=== PATIENT | female | born 1950 | race Caucasian/White ===

== ENCOUNTER 2017-06-14 10:25 | Inpatient (IN) | payer MEDICARE, BC ==
[2017-06-14 11:24] LABS: ABS Basophils 0 10^3/ul (0-0.2); ABS Eosinophils 0 10^3/ul (0-0.6); ABS Monocytes 0.4 10^3/ul (0-0.8); ABS Neutrophils 5.1 10^3/ul (1.5-7.7); ABS Nucleated RBC 0 10^3/ul; Eosinophil % 0.3 % (0-6); Hematocrit 42 % (35-47); Hemoglobin 14.2 g/dl (12.0-16.0); Lymphocyte % 15.5 % (25-47); Mean Corpuscular HGB Conc 34 g/dl (31-36); Mean Corpuscular Hemoglobin 31 pg (27-31); Mean Corpuscular Volume 92 fL (80-97); Mean Platelet Volume 9 um3 (7.4-10.4); Nucleated Red Blood Cells % 0.1; Platelet Count 195 10^3/ul (150-450); Red Blood Count 4.54 10^6/ul (4.0-5.4); Red Cell Distribution Width 14 % (10.5-15); White Blood Count 6.6 10^3/ul (3.5-10.8)
[2017-06-14 11:31] LABS: INR 0.89 (0.77-1.02)
[2017-06-14 11:43] LABS: EGFR Non-African American 72.6 (>60)
[2017-06-14] MEDS ORDERED: Iohexol 350* (CONTRAST) 500 ML MDV IV ONE (12:18)
[2017-06-14 12:35] LABS: Urine Appearance Clear; Urine Blood Negative (Negative); Urine Color Yellow; Urine Ketones Trace (Negative); Urine Protein 1+(30 mg/dL) (Negative); Urine Specific Gravity 1.013 (1.010-1.030); Urine Urobilinogen Negative (Negative)
--- NOTE | 2017-06-14 13:23 | RAD ---
HISTORY: Dysarthria COMPARISONS: None TECHNIQUE: Multiple contiguous axial CT scans were obtained of the head, before and after, and of the neck after the administration of nonionic intravenous contrast timed to the systemic arterial phase of contrast enhancement. Coronal and sagittal multiplanar reformations are submitted for review. Multiple 3-D maximum intensity projection reconstructions are also submitted for review. FINDINGS: CTA NECK: AORTIC ARCH: There is calcific atherosclerotic disease of the aortic arch, without ostial or proximal stenosis of the cephalic great vessels. There is a normal three-vessel branching pattern. RIGHT VERTEBRAL ARTERY: The right vertebral artery is patent along its course, without stenosis. LEFT VERTEBRAL ARTERY: The left vertebral artery is patent along its course, without stenosis. DOMINANCE: The left vertebral artery is dominant. RIGHT COMMON CAROTID ARTERY: The right common carotid artery is patent. The right carotid bifurcation occurs at C4-C5 RIGHT INTERNAL CAROTID ARTERY: There is atheromatous disease of the right carotid bifurcation, without right internal carotid artery stenosis by NASCET criteria. RIGHT EXTERNAL CAROTID ARTERY: The right external carotid artery is unremarkable. LEFT COMMON CAROTID ARTERY: The left common carotid artery is patent. The left carotid bifurcation occurs at C3-C4 LEFT INTERNAL CAROTID ARTERY: There is atheromatous disease of the left carotid bifurcation, without left internal carotid artery stenosis by NASCET criteria. LEFT EXTERNAL CAROTID ARTERY: The left external carotid artery is unremarkable. VENOUS CIRCULATION: The venous system is unremarkable. SALIVARY GLANDS: The parotid glands, submandibular glands, sublingual glands are normal. NASAL CAVITY/NASOPHARYNX: The nasal cavity and nasopharynx are normal. ORAL CAVITY/OROPHARYNX: The oral cavity is obscured by streak artifact from dental amalgam. The visualized oral cavity and oropharynx are unremarkable. LARYNGEAL APPARATUS/HYPOPHARYNX: The laryngeal apparatus and hypopharynx are normal. UPPER AIRWAY/UPPER ESOPHAGUS: The visualized upper airway and esophagus are normal. LUNG APICES: The lung apices are clear. THYROID GLAND: The thyroid gland is normal. LYMPH NODES: There is no lymphadenopathy by size criteria. BONES AND SOFT TISSUES: Degenerative changes are noted along the spine. CTA HEAD: INTRACRANIAL CIRCULATION: There is no aneurysm, vascular malformation, occlusion, or stenosis of the visualized intracranial circulation. The anterior communicating artery complex is clear. Bilateral posterior communicating arteries are identified. VENOUS CIRCULATION: The venous system is unremarkable. PERFUSION: There is no obvious parenchymal perfusion deficit. HEMORRHAGE/INFARCT: There is no hemorrhage or acute infarct. MASSES/SHIFT: There is no mass or shift. EXTRA-AXIAL SPACES: There are no extra-axial fluid collections. SULCI AND VENTRICLES: The sulci and ventricles are normal in size and position for the patient's stated age. CEREBRUM: There are no focal parenchymal abnormalities. BRAINSTEM: There are no focal parenchymal abnormalities. CEREBELLUM: There are no focal parenchymal abnormalities. PARANASAL SINUSES: The paranasal sinuses are clear. ORBITS: The orbits are unremarkable. BONES AND SOFT TISSUE: No bone or soft tissue abnormalities are noted. OTHER: There is no abnormal enhancement. IMPRESSION: 1. ATHEROSCLEROSIS. 2. NO INTERNAL CAROTID ARTERY STENOSIS BY NASCET CRITERIA. 3. NO ANEURYSM, VASCULAR MALFORMATION, OCCLUSION, OR STENOSIS OF THE VISUALIZED INTRACRANIAL CIRCULATION. CPT II Codes: 3100F
[2017-06-14] MEDS ORDERED: Aspirin Low Dose CHEW TAB* 81 MG PO ONE (14:44)
[2017-06-14] MEDS ORDERED: Aspirin Low Dose CHEW TAB* 81 MG ONE (14:48)
[2017-06-14] MEDS ORDERED: Labetalol IV* 5 MG/ML 20 ML VIAL IV PUSH ONE (14:49)
[2017-06-14] MEDS ORDERED: hydrALAZINE IV* 20 MG/ML VIAL IV SLOW PU PRN ×2 (14:49→23:04)
[2017-06-14] MEDS ORDERED: Acetaminophen TAB* 325 MG PO PRN (14:49)
[2017-06-14] MEDS ORDERED: Ondansetron INJ* 2 MG/ML VIAL IV PRN (14:49)
--- NOTE | 2017-06-14 16:29 | RAD ---
Indication: LEFT side weakness since waking this morning. Weak LEFT great strength and slurred speech. Comparison: CT angiogram head and neck of the same date. Technique: [employer] [place] 1.5 Zita GR606B with GEM suite. MRI brain without contrast. Report: Small focus of restricted diffusion at the posterior limb of the RIGHT internal capsule with corresponding decreased signal on ADC map consistent with acute or subacute ischemia. Susceptibility series is negative for stigmata of hemosiderin deposition to indicate previous hemorrhage. Unremarkable cerebral sulci, ventricles, and basal cisterns. Mild increased T2 signal in the periventricular white matter most suggestive of chronic small vessel ischemic disease. No intra or extra-axial fluid collection evident. Negative for mass effect. Unremarkable orbital contents. Preserved major intracranial flow-voids. No suspicious finding of the calvarium or skull base. Clear paranasal sinuses. Mild LEFT mastoid effusions. IMPRESSION: Small focus of restricted diffusion at the posterior limb of the RIGHT internal capsule with corresponding decreased signal on ADC map consistent with acute or subacute ischemia. Negative for associated mass effect.
[2017-06-14] MEDS ORDERED: Atorvastatin* 80 MG TAB PO SCH (17:00)
[2017-06-14] MEDS: Atorvastatin* 80 MG TAB PO SCH (20:19)
--- NOTE | 2017-06-14 20:24 | CONS ---
NEUROLOGY CONSULTATION: DATE OF CONSULT: 06/14/17 LOCATION: The patient is in the emergency department. REQUESTING PHYSICIAN: Alex Sousa MD REASON FOR CONSULT: Probable stroke. HISTORY OF PRESENT ILLNESS: Prema Alcantar is a 67-year-old woman with a history of discoid lupus that was previously treated with hydroxychloroquine, but she stopped it in mid April and presents this morning with complaints of listing to the left and some left-sided weakness. The patient reports that she was in her usual state of health when she went to bed last night around 10 p.m. She woke up sometime in the middle of the night, she estimates around 1:30 a.m. to urinate and noticed that she was stumbling to the left. She went back to bed and woke up several more times to urinate and had similar difficulty walking. When she woke up this morning, she was having some dysarthria and did not notice any problems with word finding or with understanding the speech of others. She had to go down the stairs seated to get out of her house because of her significant balance difficulties and her son brought her to the emergency department. She has not noticed any sensory changes on the left side. She denies any vision changes, swallowing difficulties, vertigo. She has never had symptoms like this before. She denies any known history of hypertension, though was very hypertensive and has remained so since she has been here in the emergency department. However, she does not check her blood pressure regularly and the last time she was at her primary care physician was about a year ago. Neurology consultation was requested due to possibility of stroke. PAST MEDICAL HISTORY: Discoid lupus. PAST SURGICAL HISTORY: Tubal ligation. HOME MEDICATIONS: 1. Clobetasol cream and ointment for her lupus. 2. Mometasone cream. ALLERGIES: No known drug allergies. FAMILY HISTORY: Parents reportedly both had esophageal cancer as did a sibling. Her brother had a stroke last year and she states he has a history of hypertension. SOCIAL HISTORY: She smokes approximately 4 to 5 cigarettes daily, but has smoked for the past 35 to 40 years and at the most smoked a pack a day. She does not drink alcohol. She denies any drug use. 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 She lives with her son. REVIEW OF SYSTEMS: She denies any recent unintentional weight loss, fever, chills, appetite changes. She denies chest pain, palpitations, fluttering in her chest. She denies shortness of breath or cough. She denies any new joint pain or swelling. Otherwise, as per the HPI. PHYSICAL EXAM: Vital Signs: Blood pressure on her initial arrival in the emergency department was 240/116 and on recheck it was 220/99. Her blood pressure when I was evaluating her in the room was in the 170s/90s and then later 201/90s. Her heart rate is 87, oxygen saturation 96% on room air, and her temperature is 98.4. On general examination, she is in no acute distress. She was initially sitting up in her hospital bed with her daughter and a close family friend present. She indicated that her left arm had become much weaker since her arrival in the emergency department, but she had not alerted anyone. At that point, I asked her to lie back on the stretcher and put her head at 30 degrees or less. Her heart is in a regular rate and rhythm with no obvious murmurs, rubs, or gallops. Her lungs are clear to auscultation bilaterally. There are no carotid bruits. Her skin exam is notable for multiple erythematous discoid lesions secondary to her history of discoid lupus as well as some alopecia and thinning hair presumably related to the same. On neurologic exam, she is fully awake, alert, and oriented. She has mild dysarthria. There is no aphasia. Pupils are equal, round, and reactive from 4 to 2 mm bilaterally. Versions are full without nystagmus. Gomez are full to confrontation with no extinction to double simultaneous stimulation. Facial sensation is mildly diminished to light touch in the left V1 through V3 distributions. She has flattened left nasolabial fold and delayed activation with smile. Hearing is intact to voice. The palate elevates symmetrically. The tongue deviates to the left slightly. Shoulder shrug is delayed on the left. On motor examination, she has decreased tone in the left upper extremity. Strength is full in the right upper and lower extremities. She is unable to abduct the shoulder antigravity. The biceps is a grade 2 while the left triceps is grade 3 to 4. She is able to form a fist, but very weakly. Her left lower extremity is antigravity, but with great effort and she cannot sustain it off the bed for 5 seconds. The left knee flexor is a grade 3, knee extensor grade 4 and ankle dorsiflexor grade 3. Sensation is intact to light touch and pinprick in the upper extremities, but slightly decreased to pinprick in the left lower extremity. There is no obvious ataxia out of proportion to weakness in the upper and lower extremities. Reflexes are 2+ throughout with an upgoing toe on the left. I did not ambulate her. LABORATORY DATA/DIAGNOSTIC STUDIES: CBC is unremarkable. Her CMP is notable only for a glucose of 115. Otherwise, her renal function and liver functions are normal. TSH is 3.35. Urinalysis showed 1+ protein, trace ketones, trace leukocyte esterase, hyaline casts and epithelial cells present. Her coagulation studies were normal. Noncontrasted head CT did not show any evidence of acute infarction or hemorrhage. CT angiogram of the head and neck was obtained and personally reviewed and shows some atherosclerotic disease of the aortic arch, but no significant stenosis in the anterior or posterior circulation and no evidence for dissection. Intracranially, there is no evidence for a large vessel occlusion. IMPRESSION: Prema Alcantar is a 67-year-old woman with a history of discoid lupus who is presenting subacutely with left hemiparesis, concerning for subcortical right hemispheric stroke. She apparently has worsened since she has been here in the emergency department but unfortunately because of the time of presentation, there was nothing acute that could be done for her such as TPA. Her CT angiogram shows no target for endovascular intervention. She will be admitted to our hospital for stroke workup. I will have her get an aspirin here in the emergency department and she will need a bedside swallow evaluation as well. We should allow permissive hypertension, but should treat her blood pressure carefully at this point since the systolic is greater than 180. Blood pressure goals would be to treat systolics greater than 180 and diastolic greater than 110 with goal MAPs to maintain between 80 and 120. Tomorrow, she should be continued on aspirin 81 mg daily and we should get fasting lipid profile as well as hemoglobin A1c. She will have transthoracic echocardiogram with bubble study and therapy evaluations. I will follow along during her hospitalization. [id number]/[facility] #: [id number] DENYS
--- NOTE | 2017-06-14 20:41 | HP ---
CC: Dr. Rasheed; Dr. Seals * HISTORY AND PHYSICAL: DATE OF ADMISSION: 06/14/17 PRIMARY CARE PROVIDER: Dr. Rasheed. ATTENDING PHYSICIAN WHILE IN THE HOSPITAL: Babar Retana MD * (report dictated by Phillip Reyna NP). CONSULTING NEUROLOGIST: Dr. Seals. CHIEF COMPLAINT: Left-sided weakness. HISTORY OF PRESENT ILLNESS: Ms. Alcantar is a 67-year-old female patient. She has a history of discoid lupus. She follows with a social human services assistants for this. She recently up until April was on Plaquenil for this and then subsequently stopped due to visual disturbances according to the patient. She comes in today. She woke up in the middle of the night and she noticed that she was having difficulty moving her left side. Her son noticed it this this morning and brought her in for these complaints. She denied having any slurring of her words or trouble with her words. She says that she was having trouble lifting that left side. There was weakness. She was leaning to the left. She says that she had no headache. No visual disturbances. No trouble with speech and she said she looked in the mirror, did not see a facial droop. So, she suspected that she did not have a stroke. Because of the fact that she was more weak on that left side, her son was concerned, brought her into the hospital. She was evaluated here in the ED and given her findings, there was again concern for stroke and we were asked to evaluate for admission. She denies any chest pain. Denies having any palpitations. She denies having any abdominal pain. No nausea or vomiting. No recent fevers or chills. She denies having any again loss of consciousness and no other weaknesses were described. PAST MEDICAL HISTORY: Significant for discoid lupus. PAST SURGICAL HISTORY: She has had tubal ligation. HOME MEDICATIONS: According to the list provided include: 1. Clobetasol 1 application topically b.i.d. 2. Clobetasol scalp application 0.5% topically daily. 3. Elocon 0.1% topically daily. ALLERGIES TO MEDICATIONS: Include no known drug allergies. FAMILY HISTORY: Mother had a history of esophageal cancer. Father had esophageal cancer as well. SOCIAL HISTORY: She is a smoker. She smokes about 4 to 5 cigarettes a day. She smoked for about 40 years. She does not drink alcohol. Very rarely if she does. Surrogated decision maker is her daughter and her son that reside here in [place]. REVIEW OF SYSTEMS: There is no documented fever. She denied having any significant weight change. There was no double vision. She denies having any ear discharge. There is no rhinorrhea. No sore throat. No thyroid enlargement. She denied having any chest pain. There is no orthopnea. There is no nocturnal dyspnea. There was no abdominal pain. There was no nausea, no vomiting. No dysuria. There was no frequency. No seizure. No loss of consciousness. No pruritus and no skin ulceration. Review of 14 systems completed, all others negative. PHYSICAL EXAMINATION GENERAL: At this time, Ms. Alcantar is a 67-year-old female patient. She is sitting in the ED stretcher. She does not appear to be in any acute distress. VITAL SIGNS: Blood pressure 195/128, pulse 87, respirations 18, O2 sat 97%, temperature 98.4. HEENT: Head: Atraumatic, normocephalic. Eyes: EOMs intact. Sclerae are anicteric and not pale. Throat: Oral mucosa appears to be moist. No oropharyngeal erythema. NECK: Supple. LUNGS: Clear to auscultation bilaterally. No wheezes, rales, or rhonchi. HEART: Sounds S1, S2. Regular rate and rhythm. No murmurs, rubs, or gallops. ABDOMEN: Soft, flat, nontender. Bowel sounds were present. EXTREMITIES: She moved the right side with 5/5 strength. The left side, she has 2/5 strength. She has no peripheral edema. NEUROLOGIC: She is awake, alert. Her speech seems appears clear to me. She had no facial drooping. Her tongue was midline. Cranial nerves were intact. She did have hemiparesis on the left side and weakness. She does have a drift on the left side and she is unable to do [id number] with her left upper extremity or heel- to-wyatt with the left extremity. No other gross focal deficits were noted. SKIN: Intact. She does have multiple lesions noted to her scalp and her arms. DIAGNOSTIC STUDIES/LAB DATA: Today, WBC of 6.6, RBC of 4.54, hemoglobin 14.2, hematocrit of 42, platelet count of 195,000. INR of 0.89. Sodium 138, potassium of 3.8, chloride of 104, bicarb 27, BUN 14, creatinine of 0.79, glucose 115, lactic 0.9, calcium is 9.9. Total bili is 0.5, AST 24, ALT 14, alk phos 92. Troponin 0.00. Albumin 4.12. TSH was normal. Urine showed trace ketones, trace leukocyte esterase, present squamous epithelial cells, present hyaline casts. CT of the brain, it was done with the CTA together. Head CTA, impression: Atherosclerosis. No internal carotid artery stenosis by NASCET criteria. No aneurysm, vascular malformation, occlusion, or stenosis was visualized in intracranial circulation. CT brain, no obvious bleed was noted. The CT report is pending. She had an EKG obtained today showing appears to be a normal sinus rhythm, rate of 88. No ST elevations, T-wave inversions were noted. Old medical records were reviewed. ASSESSMENT AND PLAN: Ms. Alcantar is a 67-year-old female patient with history of discoid lupus coming into the ED today with complaints of left-sided weakness. We were asked to evaluate for admission. She will be admitted under inpatient status for: 1. Cerebrovascular accident. At this point, for the first 24 hours, to allow for perfusion, we will keep the patient on bed rest with head of the bed at 0 to 30 degrees. She may have it up for eating. She did pass a bedside swallow evaluation. The plan will be for PTE/OT evaluation when we are able to ambulate her safely. She would benefit from subacute rehab evaluation. It appears that she may have had a stroke. MRI is pending. Telemetry has been ordered. I ordered an echo with bubble study. We are checking lipid panels in the morning. She has been given aspirin and I will start her on high dose Lipitor for the time being. Dr. Seals is evaluating. Blood pressure, we are going to allow for permissive hypertension. We will treat for systolics greater than 180 and diastolics greater than 110. I did order hydralazine p.r.n. for this and we will continue to follow. 2. Discoid lupus. We will get connective tissue panel. In addition to this, we will get ESR and CRP and we will continue to follow. 3. DVT prophylaxis. She will be placed on SCDs. In the setting of acute stroke, I do not want to give her anticoagulants such as heparin and Lovenox at this point and we may need to consider starting this after 24 hours. 4. Code status. Full code. 5. Fluids, electrolytes, and nutrition. She can have a heart healthy diet. TIME SPENT: Time spent on the admission was 60 minutes, greater than half the time was spent [id number] with the patient obtaining my history and physical, other half of the time spent going over the plan of care with the patient and implementing plan of care. I did discuss plan of care with my attending, Dr. Retana; he is in agreement. PHILLIP REYNA, DEENA [id number]/[facility] #: [id number] DENYS
[2017-06-14] MEDS: amLODIPine TAB* 5 MG PO SCH (20:45)
--- NOTE | 2017-06-14 21:28 | ED ---
Hanh Rincon Gabriel, scribed for Adam Sousa MD on 06/14/17 at 1129 . Neurological HPI - HPI Summary HPI Summary: This patient is a 67 year old F presenting to [facility] with a chief complaint of a possible CVA that began last night. Pt states that she woke up last night and noticed some left sided listing when she tried to walk. She went back to bed and when she awoke this morning she reports having left sided weakness and slurred speech but she is amble to ambulate. Patient denies STEWART, diplopia, vision changes, and aphasia. Pt is right handed. - History of Current Complaint Chief Complaint: EDHypertension Stated Complaint: WEAKNES Time Seen by Provider: 06/14/17 10:36 Hx Obtained From: Patient Onset/Duration: Started days ago - last night, Still Present Onset Severity: Mild Current Severity: Mild Pain Intensity: 0 Pain Scale Used: 0-10 Numeric Syncope Context: Loss of Consciousness: No Associated Signs and Symptoms: Positive: Unsteady Gait, Weakness, Impaired Speech - Allergy/Home Medications Allergies/Adverse Reactions: Allergies Allergy/AdvReac Type Severity Reaction Status Date / Time No Known Allergies Allergy Verified 06/14/17 10:31 Home Medications: Home Medications Clobetasol 0.05% OINT* 1 applic TOPICAL BID 06/14/17 [History Confirmed 06/14/17 ] Clobetasol Propionate [Cormax Scalp Application] 0.05 % TOPICAL DAILY 06/14/17 [ History Confirmed 06/14/17] Mometasone Furoate [Elocon] 0.1 % TOPICAL DAILY 06/14/17 [History Confirmed ] PMH/Surg Hx/FS Hx/Imm Hx Endocrine/Hematology History: Denies: Hx Diabetes Cardiovascular History: Denies: Hx Hypertension, Hx Pacemaker/ICD Sensory History: Denies: Hx Hearing Aid Psychiatric History: Denies: Hx Panic Disorder - Surgical History Surgery Procedure, Year, and Place: LT FOOT SURGERY. TUBAL Infectious Disease History: No Infectious Disease History: Denies: Traveled Outside the [place] in Last 30 Days - Social History Alcohol Use: None Substance Use Type: Reports: None Smoking Status (MU): Light Every Day Tobacco Smoker Review of Systems Constitutional: Other - unsteadr gait Negative: Blurred Vision, Diplopia Neurological: Negative - aphasia Positive: Weakness, Slurred Speech. Negative: Headache All Other Systems Reviewed And Are Negative: Yes Physical Exam - Summary Physical Exam Summary: Appearance: The patient is well-nourished in no acute distress and in no acute pain. Skin: The skin is warm and dry and skin color reflects adequate perfusion. HEENT: The head is normocephalic and atraumatic. The pupils are equal and reactive. The conjunctivae are clear and without drainage. Nares are patent and without drainage. Mouth reveals moist mucous membranes and the throat is without erythema and exudate. The external ears are intact. The ear canals are patent and without drainage. The tympanic membranes are intact. Neck: the neck is supple with full range of motion and non-tender. There are no carotid bruits. There is no neck vein distension. Respiratory: Chest is non-tender. Lungs are clear to auscultation and breath sounds are symmetrical and equal. Cardiovascular: Heart is regular rate and rhythm. There is no murmur or rub auscultated. There is no peripheral edema and pulses are symmetrical and equal. Abdomen: The abdomen is soft and non-tender. There are normal bowel sounds heard in all four quadrants and there is no organomegaly palpated. Musculoskeletal: There is no back tenderness noted. Extremities are non-tender with full range of motion. There is good capillary refill. There is no peripheral edema or calf tenderness elicited. Neurological: Patient is alert and oriented to person, place and time. The patient has symmetrical motor strength in all four extremities. Cranial nerves are grossly intact. Deep tendon reflexes are symmetrical and equal in all four extremities. Psychiatric: The patient has an appropriate affect and does not exhibit any anxiety or depression. GCS 15 Triage Information Reviewed: Yes Vital Signs On Initial Exam: Initial Vitals Temp Pulse Resp BP Pulse Ox 98.4 F 103 16 240/116 99 06/14/17 10:29 06/14/17 10:29 06/14/17 10:29 06/14/17 10:29 06/14/17 10:29 Vital Signs Reviewed: Yes Diagnostics - Vital Signs Vital Signs Temp Pulse Resp BP Pulse Ox 06/14/17 11:00 83 17 201/101 96 06/14/17 10:41 220/99 06/14/17 10:29 98.4 F 103 16 240/116 99 - Laboratory Lab Results: Lab Results 06/14/17 06/14/17 06/14/17 Range/Units 11:10 11:10 11:10 WBC 6.6 (3.5-10.8) 10^3/ul RBC 4.54 (4.0-5.4) 10^6/ul Hgb 14.2 (12.0-16.0) g/dl Hct 42 (35-47) % MCV 92 (80-97) fL MCH 31 (27-31) pg MCHC 34 (31-36) g/dl RDW 14 (10.5-15) % Plt Count 195 (150-450) 10^3/ul MPV 9 (7.4-10.4) um3 Neut % (Auto) 77.8 (38-83) % Lymph % (Auto) 15.5 L (25-47) % [place] % (Auto) 5.9 (0-7) % Eos % (Auto) 0.3 (0-6) % Baso % (Auto) 0.5 (0-2) % Absolute Neuts (auto) 5.1 (1.5-7.7) 10^3/ul Absolute Lymphs (auto) 1.0 (1.0-4.8) 10^3/ul Absolute Monos (auto) 0.4 (0-0.8) 10^3/ul Absolute Eos (auto) 0 (0-0.6) 10^3/ul Absolute Basos (auto) 0 (0-0.2) 10^3/ul Absolute Nucleated RBC 0 10^3/ul Nucleated RBC % 0.1 ESR 31 (0-40) mm/Hr INR (Anticoag Therapy) (0.77-1.02) Sodium 138 (133-145) mmol/L Potassium 3.8 (3.5-5.0) mmol/L Chloride 104 (101-111) mmol/L Carbon Dioxide 27 (22-32) mmol/L Anion Gap 7 (2-11) mmol/L BUN 14 (6-24) mg/dL Creatinine 0.79 (0.51-0.95) mg/dL Est GFR ( Amer) 93.4 (>60) Est GFR (Non-Af Amer) 72.6 (>60) BUN/Creatinine Ratio 17.7 (8-20) Glucose 115 H (70-100) mg/dL Lactic Acid 0.9 (0.5-2.0) mmol/L Calcium 9.9 (8.6-10.3) mg/dL Total Bilirubin 0.50 (0.2-1.0) mg/dL AST 24 (13-39) U/L ALT 14 (7-52) U/L Alkaline Phosphatase 92 (34-104) U/L Troponin I 0.00 (<0.04) ng/mL C-Reactive Protein 1.74 (< 5.00) mg/L Total Protein 7.6 (6.4-8.9) g/dL Albumin 4.1 (3.2-5.2) g/dL Globulin 3.5 (2-4) g/dL Albumin/Globulin Ratio 1.2 (1-3) TSH 3.35 (0.34-5.60) mcIU/mL Urine Color Urine Appearance Urine pH (5-9) Ur Specific [place] (1.010-1.030) Urine Protein (Negative) Urine Ketones (Negative) Urine Blood (Negative) Urine Nitrate (Negative) Urine Bilirubin (Negative) Urine Urobilinogen (Negative) Ur Leukocyte Esterase (Negative) Urine WBC (Auto) (Absent) Urine RBC (Auto) (Absent) Ur Squamous Epith Cells (Absent) Urine Bacteria (Absent) Hyaline Casts (Absent) Urine Glucose (Negative) Urine Ascorbic Acid (Negative) 06/14/17 06/14/17 Range/Units 11:10 11:59 WBC (3.5-10.8) 10^3/ul RBC (4.0-5.4) 10^6/ul Hgb (12.0-16.0) g/dl Hct (35-47) % MCV (80-97) fL MCH (27-31) pg MCHC (31-36) g/dl RDW (10.5-15) % Plt Count (150-450) 10^3/ul MPV (7.4-10.4) um3 Neut % (Auto) (38-83) % Lymph % (Auto) (25-47) % [place] % (Auto) (0-7) % Eos % (Auto) (0-6) % Baso % (Auto) (0-2) % Absolute Neuts (auto) (1.5-7.7) 10^3/ul Absolute Lymphs (auto) (1.0-4.8) 10^3/ul Absolute Monos (auto) (0-0.8) 10^3/ul Absolute Eos (auto) (0-0.6) 10^3/ul Absolute Basos (auto) (0-0.2) 10^3/ul Absolute Nucleated RBC 10^3/ul Nucleated RBC % ESR (0-40) mm/Hr INR (Anticoag Therapy) 0.89 (0.77-1.02) Sodium (133-145) mmol/L Potassium (3.5-5.0) mmol/L Chloride (101-111) mmol/L Carbon Dioxide (22-32) mmol/L Anion Gap (2-11) mmol/L BUN (6-24) mg/dL Creatinine (0.51-0.95) mg/dL Est GFR ( Amer) (>60) Est GFR (Non-Af Amer) (>60) BUN/Creatinine Ratio (8-20) Glucose (70-100) mg/dL Lactic Acid (0.5-2.0) mmol/L Calcium (8.6-10.3) mg/dL Total Bilirubin (0.2-1.0) mg/dL AST (13-39) U/L ALT (7-52) U/L Alkaline Phosphatase (34-104) U/L Troponin I (<0.04) ng/mL C-Reactive Protein (< 5.00) mg/L Total Protein (6.4-8.9) g/dL Albumin (3.2-5.2) g/dL Globulin (2-4) g/dL Albumin/Globulin Ratio (1-3) TSH (0.34-5.60) mcIU/mL Urine Color Yellow Urine Appearance Clear Urine pH 7.0 (5-9) Ur Specific [place] 1.013 (1.010-1.030) Urine Protein 1+(30 mg/dl) H (Negative) Urine Ketones Trace H (Negative) Urine Blood Negative (Negative) Urine Nitrate Negative (Negative) Urine Bilirubin Negative (Negative) Urine Urobilinogen Negative (Negative) Ur Leukocyte Esterase Trace H (Negative) Urine WBC (Auto) Trace(0-5/hpf) (Absent) Urine RBC (Auto) Absent (Absent) Ur Squamous Epith Cells Present H (Absent) Urine Bacteria Absent (Absent) Hyaline Casts Present H (Absent) Urine Glucose Negative (Negative) Urine Ascorbic Acid * H (Negative) Result Diagrams: 06/14/17 11:10 06/14/17 11:10 Lab Statement: Any lab studies that have been ordered have been reviewed, and results considered in the medical decision making process. - CT CTA head CT Interpretation Completed By: Radiologist - . ATHEROSCLEROSIS. 2. NO INTERNAL CAROTID ARTERY STENOSIS BY NASCET CRITERIA. 3. NO ANEURYSM, VASCULAR MALFORMATION, OCCLUSION, OR STENOSIS OF THE VISUALIZED INTRACRANIAL CIRCULATION ED physician has reviewed this radiology report. - EKG 1057 Cardiac Rate: NL EKG Rhythm: Sinus Rhythm - at 88 BPM NIH Scale - NIH Scale Level of Consciousness: Alert/Keenly Responsive Ask Patient the Month and His/Her Age: Both Correct Ask Pt to Open/Close Eyes and Account Analyst/Release Non-Paretic Hand: Both Correctly Best Gaze (Only Horizontal Eye Movement): Normal Visual Field Testing: No Visual Loss Facial Paresis-Pt to Smile & Close Eyes or Grimace Symmetry: Normal/Symmetrical Motor Function - Right Arm: No Drift-Holds 10 Seconds Motor Function - Left Arm: Drifts LT 10 seconds Motor Function - Right Leg: No Drift-Holds 10 Seconds Motor Function - Left Leg: Drifts LT 10 seconds Limb Ataxia-Must be out of Proportion to Weakness Present: Absent Sensory (Use Pinprick to Test Arms/Legs/Trunk/Face): Normal Best Language (Describe Picture, Name Items): No Aphasia Dysarthria (Read Several Words): Slurs Some Words Extinction and Inattention: No Abnormality Total Score: 3 Course/Dx - Course Course Of Treatment: Ms. Alcantar presented with symptoms of having had a CVA during the night last night. She had a NIHSS score of 3. She was evaluated by Dr. Seals and is being admitted to the hospitalist service. - Diagnoses Provider Diagnoses: CVA (cerebral vascular accident) - Physician Notifications Discussed Care Of Patient With: Babar Retana Time Discussed With Above Provider: 14:08 Instructed by Provider To: Admit As Inpatient Discharge - Discharge Plan Condition: Fair Disposition: ADMITTED TO [facility] The documentation as recorded by the Hanh osborne Gabriel accurately reflects the service I personally performed and the decisions made by , Adam Sousa MD.
[2017-06-15 05:42] LABS: ABS Basophils 0 10^3/ul (0-0.2); ABS Eosinophils 0.1 10^3/ul (0-0.6); ABS Lymphocytes 1.3 10^3/ul (1.0-4.8); ABS Monocytes 0.6 10^3/ul (0-0.8); ABS Neutrophils 5.4 10^3/ul (1.5-7.7); ABS Nucleated RBC 0 10^3/ul; Hematocrit 40 % (35-47); Lymphocyte % 17.2 % (25-47); Mean Corpuscular HGB Conc 35 g/dl (31-36); Mean Corpuscular Hemoglobin 32 pg (27-31); Mean Corpuscular Volume 91 fL (80-97); Mean Platelet Volume 9 um3 (7.4-10.4); Nucleated Red Blood Cells % 0.1; Platelet Count 187 10^3/ul (150-450); Red Cell Distribution Width 13 % (10.5-15); White Blood Count 7.4 10^3/ul (3.5-10.8)
[2017-06-15 06:15] LABS: EGFR Non-African American 74.8 (>60)
[2017-06-15] MEDS: amLODIPine TAB* 5 MG PO SCH (08:33)
[2017-06-15] MEDS: Aspirin Low Dose CHEW TAB* 81 MG PO SCH (08:33)
--- NOTE | 2017-06-15 13:32 | PN ---
Subjective Date of Service: 06/15/17 Interval History: Pt feels well, still has significant left sided weakness Objective Active Medications: Acetaminophen (Tylenol Tab*) 650 mg PO Q4H PRN PRN Reason: FEVER/PAIN Amlodipine Besylate (Norvasc Tab*) 5 mg PO DAILY [facility] Last Admin: 06/15/17 08:33 Dose: 5 mg Aspirin (Aspirin Low Dose Tab*) 81 mg PO DAILY [facility] Last Admin: 06/15/17 08:33 Dose: 81 mg Atorvastatin Calcium (Lipitor*) 80 mg PO 2100 [facility] Last Admin: 06/14/17 20:19 Dose: 80 mg Hydralazine HCl (Apresoline Iv*) 10 mg IV SLOW PU Q4H PRN PRN Reason: BLOOD PRESSURE Ondansetron HCl (Zofran Inj*) 4 mg IV Q6H PRN PRN Reason: NAUSEA Vital Signs - 8 hr 06/15/17 06/15/17 08:00 08:06 Temperature 98.6 F Pulse Rate 77 Respiratory 14 14 Rate Blood Pressure 176/88 (mmHg) O2 Sat by Pulse 97 Oximetry Oxygen Devices in Use Now: None Appearance: 67 yo f in nAD, aAOx3 Eyes: No Scleral Icterus, PERRLA Ears/Nose/Mouth/Throat: NL Teeth, Lips, Gums, Mucous Membranes Moist Neck: NL Appearance and Movements; NL JVP, Trachea Midline Respiratory: Symmetrical Chest Expansion and Respiratory Effort, Clear to Auscultation Cardiovascular: NL Sounds; No Murmurs; No JVD, RRR, No Edema Abdominal: NL Sounds; No Tenderness; No Distention Lymphatic: No Cervical Adenopathy Extremities: No Edema, No Clubbing, Cyanosis Skin: No Nodules or Sclerosis, - - excoriations R upper back and r forearm Neurological: Alert and Oriented x 3, - - L UE at 3+/5, L LE at 4/5 Result Diagrams: 06/15/17 05:34 06/15/17 05:34 Additional Lab and Data: Lab Results 06/14/17 06/14/17 06/14/17 Range/Units 11:10 11:10 11:10 WBC 6.6 (3.5-10.8) 10^3/ul RBC 4.54 (4.0-5.4) 10^6/ul Hgb 14.2 (12.0-16.0) g/dl Hct 42 (35-47) % MCV 92 (80-97) fL MCH 31 (27-31) pg MCHC 34 (31-36) g/dl RDW 14 (10.5-15) % Plt Count 195 (150-450) 10^3/ul MPV 9 (7.4-10.4) um3 Neut % (Auto) 77.8 (38-83) % Lymph % (Auto) 15.5 L (25-47) % [place] % (Auto) 5.9 (0-7) % Eos % (Auto) 0.3 (0-6) % Baso % (Auto) 0.5 (0-2) % Absolute Neuts (auto) 5.1 (1.5-7.7) 10^3/ul Absolute Lymphs (auto) 1.0 (1.0-4.8) 10^3/ul Absolute Monos (auto) 0.4 (0-0.8) 10^3/ul Absolute Eos (auto) 0 (0-0.6) 10^3/ul Absolute Basos (auto) 0 (0-0.2) 10^3/ul Absolute Nucleated RBC 0 10^3/ul Nucleated RBC % 0.1 ESR 31 (0-40) mm/Hr INR (Anticoag Therapy) (0.77-1.02) Sodium 138 (133-145) mmol/L Potassium 3.8 (3.5-5.0) mmol/L Chloride 104 (101-111) mmol/L Carbon Dioxide 27 (22-32) mmol/L Anion Gap 7 (2-11) mmol/L BUN 14 (6-24) mg/dL Creatinine 0.79 (0.51-0.95) mg/dL Est GFR ( Amer) 93.4 (>60) Est GFR (Non-Af Amer) 72.6 (>60) BUN/Creatinine Ratio 17.7 (8-20) Glucose 115 H (70-100) mg/dL Lactic Acid 0.9 (0.5-2.0) mmol/L Calcium 9.9 (8.6-10.3) mg/dL Total Bilirubin 0.50 (0.2-1.0) mg/dL AST 24 (13-39) U/L ALT 14 (7-52) U/L Alkaline Phosphatase 92 (34-104) U/L Troponin I 0.00 (<0.04) ng/mL C-Reactive Protein 1.74 (< 5.00) mg/L Total Protein 7.6 (6.4-8.9) g/dL Albumin 4.1 (3.2-5.2) g/dL Globulin 3.5 (2-4) g/dL Albumin/Globulin Ratio 1.2 (1-3) TSH 3.35 (0.34-5.60) mcIU/mL Urine Color Urine Appearance Urine pH (5-9) Ur Specific [place] (1.010-1.030) Urine Protein (Negative) Urine Ketones (Negative) Urine Blood (Negative) Urine Nitrate (Negative) Urine Bilirubin (Negative) Urine Urobilinogen (Negative) Ur Leukocyte Esterase (Negative) Urine WBC (Auto) (Absent) Urine RBC (Auto) (Absent) Ur Squamous Epith Cells (Absent) Urine Bacteria (Absent) Hyaline Casts (Absent) Urine Glucose (Negative) Urine Ascorbic Acid (Negative) 06/14/17 06/14/17 Range/Units 11:10 11:59 WBC (3.5-10.8) 10^3/ul RBC (4.0-5.4) 10^6/ul Hgb (12.0-16.0) g/dl Hct (35-47) % MCV (80-97) fL MCH (27-31) pg MCHC (31-36) g/dl RDW (10.5-15) % Plt Count (150-450) 10^3/ul MPV (7.4-10.4) um3 Neut % (Auto) (38-83) % Lymph % (Auto) (25-47) % [place] % (Auto) (0-7) % Eos % (Auto) (0-6) % Baso % (Auto) (0-2) % Absolute Neuts (auto) (1.5-7.7) 10^3/ul Absolute Lymphs (auto) (1.0-4.8) 10^3/ul Absolute Monos (auto) (0-0.8) 10^3/ul Absolute Eos (auto) (0-0.6) 10^3/ul Absolute Basos (auto) (0-0.2) 10^3/ul Absolute Nucleated RBC 10^3/ul Nucleated RBC % ESR (0-40) mm/Hr INR (Anticoag Therapy) 0.89 (0.77-1.02) Sodium (133-145) mmol/L Potassium (3.5-5.0) mmol/L Chloride (101-111) mmol/L Carbon Dioxide (22-32) mmol/L Anion Gap (2-11) mmol/L BUN (6-24) mg/dL Creatinine (0.51-0.95) mg/dL Est GFR ( Amer) (>60) Est GFR (Non-Af Amer) (>60) BUN/Creatinine Ratio (8-20) Glucose (70-100) mg/dL Lactic Acid (0.5-2.0) mmol/L Calcium (8.6-10.3) mg/dL Total Bilirubin (0.2-1.0) mg/dL AST (13-39) U/L ALT (7-52) U/L Alkaline Phosphatase (34-104) U/L Troponin I (<0.04) ng/mL C-Reactive Protein (< 5.00) mg/L Total Protein (6.4-8.9) g/dL Albumin (3.2-5.2) g/dL Globulin (2-4) g/dL Albumin/Globulin Ratio (1-3) TSH (0.34-5.60) mcIU/mL Urine Color Yellow Urine Appearance Clear Urine pH 7.0 (5-9) Ur Specific [place] 1.013 (1.010-1.030) Urine Protein 1+(30 mg/dl) H (Negative) Urine Ketones Trace H (Negative) Urine Blood Negative (Negative) Urine Nitrate Negative (Negative) Urine Bilirubin Negative (Negative) Urine Urobilinogen Negative (Negative) Ur Leukocyte Esterase Trace H (Negative) Urine WBC (Auto) Trace(0-5/hpf) (Absent) Urine RBC (Auto) Absent (Absent) Ur Squamous Epith Cells Present H (Absent) Urine Bacteria Absent (Absent) Hyaline Casts Present H (Absent) Urine Glucose Negative (Negative) Urine Ascorbic Acid * H (Negative) Assess/Plan/Problems-Billing Assessment: 67 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 (5) DVT prophylaxis Comment: heparin sc Status and Disposition: inpatient
--- NOTE | 2017-06-15 14:15 | ECHO ---
Patient: DERIK LANZA [facility] Rec#: [id number] : 1950 Date: 06/15/2017 Age: 67y Height: 165.1 cm / 65.0 in Weight: 79.4 kg / 175.0 lbs Sex: F BSA: 1.9 Room#: [facility] Admit Date#: 06/14/2017 Referring: Phillip Reyna NP Reading: Christiano Peña MD E Commerce Analyst: Agata Bhatt RN RDCS CC: Bart Rasheed MD Transthoracic Echocardiogram Indication: CVA BP: 158/86 HR: 75 Rhythm: NSR Findings History: Discoid lupus, obesity, smoker Technical Comments: The study quality is fair. The study is technically limited due to patient body habitus. The study is technically limited due to the patient's smoking history. Completed at 1325. Left Ventricle: The left ventricular chamber size is normal. Moderate concentric left ventricular hypertrophy is observed. There is a focal wall motion abnormality present.The low posterolateral wall appears moderately hypokinetic. This is a small area. There is mildly decreased left ventricular systolic function.Visually estimated LVEF is 45%. There is an E to A reversal in the mitral valve flow pattern suggestive of diastolic dysfunction. Left Atrium: The left atrial chamber size is normal. Right Ventricle: The right ventricular chamber size and systolic function are within normal limits. Right Atrium: The right atrial cavity size is normal. The bubble study is negative.There is no evidence of right to left shunting at the atrial level. Aortic Valve: The aortic valve is trileaflet. The aortic valve leaflets are mildly thickened. There is no evidence of aortic regurgitation. There is no evidence of aortic stenosis. Mitral Valve: Mild mitral annular calcification present. The mitral valve leaflets are mildly thickened. There is trace to mild mitral regurgitation. There is no evidence of mitral stenosis. Tricuspid Valve: The tricuspid valve leaflets are normal. There is trace tricuspid regurgitation. Unable to estimate the right ventricular systolic pressure. There is no tricuspid stenosis. Pulmonic Valve: The pulmonic valve appears normal. There is a trace pulmonic regurgitation. There is no pulmonic stenosis. Pericardium: There is no significant pericardial effusion. A pericardial fat pad is visualized. Aorta: There is mild dilatation of the ascending aorta. There is no dilatation of the aortic arch. There is no dilation of the aortic root. Pulmonary Artery: The main pulmonary artery appears normal. Venous: The inferior vena cava appears normal in size. There is a greater than 50% respiratory change in the inferior vena cava dimension. Contrast: Normal saline was used as contrast for the bubble study. Conclusions Moderate concentric left ventricular hypertrophy is observed. There is a focal wall motion abnormality present.The low posterolateral wall appears moderately hypokinetic. This is a small area. There is mildly decreased left ventricular systolic function. Visually estimated LVEF is 45%. There is an E to A reversal in the mitral valve flow pattern suggestive of diastolic dysfunction. There is no evidence of right to left shunting at the atrial level. There is trace to mild mitral regurgitation. There is trace tricuspid regurgitation. Unable to estimate the right ventricular systolic pressure. There is a trace pulmonic regurgitation. There is mild dilatation of the ascending aorta. No reports of prior studies were offered for comparison. Measurements Name Value Normal Range RVDdMajor (2D) 2.8 cm (2.2 - 4.4) RAd ISD 4CH 3.6 cm (3.4 - 4.9) RA (A4C)W 3.3 cm (2.9 - 4.6) IVSd (2D) 1.6 cm (0.6 - 1) LVPWd (2D) 1.6 cm (0.6 - 1) LVIDd (2D) 3.9 cm (3.6 - 5.4) LVIDs (2D) 2.9 cm - LV FS (2D) 25 % (25 - 45) Aortic Annulus 2 cm (1.4 - 2.6) Ao root diameter (2D) 3.2 cm (2.1 - 3.5) Ascending Ao 3.6 cm (2.1 - 3.4) Aortic arch 2.8 cm (1.8 - 3.4) LAd ISD 4CH 4.2 cm (2.9 - 5.3) LA ISD 4CH W 3.5 cm (2.5 - 4.5) Name Value Normal Range LA ESV SP 4CH (A/L) 34 ml - LA ESV SP 2CH (A/L) 54 ml - LA ESV BP (A/L) 51 ml - LA ESV BP (A/L) index 27.2 ml/m2 - LA ESV SP 4CH (MOD) 30 ml - LA ESV SP 2CH (MOD) 51 ml - Name Value Normal Range MV E-wave Vmax 0.5 m/sec - MV deceleration time 313 msec - MV A-wave Vmax 1.1 m/sec - MV E:A ratio 0.5 ratio - LV septal e' Vmax 0.04 m/sec - LV lateral e' Vmax 0.04 m/sec - LV E:e' septal ratio 12.5 ratio - LV E:e' lateral ratio 12.5 ratio - Name Value Normal Range AV Vmax 1.2 m/sec - AV VTI 23.8 cm - AV peak gradient 6.1 mmHg - AV mean gradient 4.1 mmHg - LVOT Vmax 0.92 m/sec - LVOT VTI 17.3 cm - LVOT peak gradient 3.4 mmHg - LVOT mean gradient 2 mmHg - GIO Vmax 0.39 m/sec - Name Value Normal Range PV Vmax 0.83 m/sec -
[2017-06-15] MEDS: Atorvastatin* 80 MG TAB PO SCH (19:44)
[2017-06-15] MEDS: Clobetasol 0.05% OINT* 30 GM TUBE TOPICAL SCH (21:34)
[2017-06-15] MEDS: Heparin VIAL(*) 5000 UNITS/ML VIAL (FIVE THOUSAND) SUBCUT SCH (21:44)
[2017-06-16] MEDS: Heparin VIAL(*) 5000 UNITS/ML VIAL (FIVE THOUSAND) SUBCUT SCH (06:30)
[2017-06-16] MEDS ORDERED: Potassium Chlor TAB* 20 MEQ TAB.ER PO ONE (07:42)
[2017-06-16 08:14] VITALS: BP 142/50
[2017-06-16] MEDS: Aspirin Low Dose CHEW TAB* 81 MG PO SCH (09:09)
[2017-06-16] MEDS: amLODIPine TAB* 5 MG PO SCH (09:09)
[2017-06-16] MEDS: Clobetasol 0.05% OINT* 30 GM TUBE TOPICAL SCH (09:12)
--- NOTE | 2017-06-16 11:51 | PN ---
NEUROLOGY PROGRESS NOTE: DATE OF FOLLOWUP: 06/15/17 HISTORY: No acute overnight events. The patient reports that everyone is telling her that she is doing better and she thinks so too, but she still cannot move her left arm very well. She had several family members in the room including her grandson, daughter, son, and family friend. She is being evaluated for the PMRU. HOSPITAL MEDICATIONS: 1. Tylenol 650 q.4 p.r.n. 2. Norvasc 5 mg daily. 3. Aspirin 81 mg daily. 4. Lipitor 80 mg daily. 5. Clobetasol ointment twice daily. 6. Heparin 5000 units q.8 hours. 7. Hydralazine 10 mg IV q.4 hours p.r.n. 8. Zofran 4 mg IV q.6 p.r.n. nausea. PHYSICAL EXAMINATION: Vital Signs: Temperature 98.5, blood pressure 160/84, heart rate 76, oxygen saturation 97% on room air. Her blood pressures have been 180 and below since 2200 last evening. On general examination, she is well appearing. She has scalp and skin lesions consistent with her discoid lupus. Her cardiac exam shows regular rate and rhythm. The lungs were clear to auscultation. On neurologic exam, she is fully alert, awake, and oriented. She has mild dysarthria. Versions are full without nystagmus. Gomez are full to confrontation. She has some left lower facial weakness, which appears improved compared to yesterday. There is nearly equal activation with smile. On motor examination, she is not able to maintain the left arm antigravity at the shoulder. The biceps is a grade 4-, and the triceps on the left is grade 4+. Her marble polisher is about a grade 3 on the left. The left hip flexor is a grade 3 as is the dorsiflexor on that side. Her strength is full on the right. There does not appear to be any sensory differences left to right today. DIAGNOSTIC STUDIES/LAB DATA: Her lipid profile shows triglycerides 82, total cholesterol 175, LDL 109, HDL 49.7. Hemoglobin A1c is 5.6. Transthoracic echocardiogram showed no [id number]-joud shunt. There is moderate concentric left ventricular hypertrophy and a focal wall motion abnormality in the low posterolateral wall, which appears moderately hypokinetic, but is a small area. The LV function is mildly decreased at 45%. There is suggestion of diastolic dysfunction. Left atrial chamber is normal size. Brain MRI was personally reviewed and shows a small focus of restricted diffusion in the posterior limb of the right internal capsule. Otherwise, there is mild increased T2 signal in the periventricular white matter suggestive of chronic small- vessel ischemic disease. IMPRESSION AND PLAN: Prema Alcantar is a 67-year-old woman with a history of discoid lupus, who presented subacutely yesterday with somewhat fluctuating left- sided weakness, found to have right basal ganglia infarct. Based on the distribution of the infarct being supplied by small vessels as well as the presence of left ventricular hypertrophy on her transthoracic echocardiogram, I think it is likely that she has had longer standing untreated hypertension as the etiology for this stroke. I again counseled her on the importance of quitting smoking, which she appears motivated at this time to do. She has been started on a statin as well as low-dose of amlodipine. Her goal LDL is ideally less than 70 and blood pressures over the next several days should be targeted to be systolic of 130 and diastolic of 80 or less. I agree with the therapy evaluations and hopefully she will have a good chance of a good recovery if she is accepted to the [facility]. All of her family's and her questions were answered to the best of my ability. [id number]/[facility] #: [id number] DENYS
[2017-06-16] MEDS ORDERED: Metoprolol Tartrate TAB* 25 MG PO SCH (21:00)
--- NOTE | 2017-06-17 03:46 | DS ---
ADDENDUM NOW INCLUDED ON THIS REPORT CC: Dr. Seals; Dr. Rasheed; Dr. Brasher; Dr. Joyner * DISCHARGE SUMMARY: DATE OF ADMISSION: 06/14/17 DATE OF DISCHARGE: 06/16/17 The patient is being transferred to our physiotherapy unit at [facility]. PRIMARY CARE PROVIDER: Bart Rasheed MD. DISCHARGE DIAGNOSES: 1. Ischemic cerebrovascular accident with residual left-sided weakness. 2. Hypertension. 3. 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 SECONDARY DIAGNOSES: 1. History of discoid lupus. 2. Status post tubal ligation. MEDICATIONS AT DISCHARGE: Include: 1. Aspirin 81 mg daily. 2. Lipitor 80 mg daily. 3. Clobetasol ointment 0.05%, one application to the affected area daily. 4. Metoprolol tartrate 12.5 mg b.i.d. 5. Mometasone cream 0.1%, applied to affected areas of the skin daily. LABORATORY DATA AND STUDIES: Performed during the hospital stay, included: On 06/15/17, sodium of 135, potassium 3.4, chloride 102, carbon dioxide 25, BUN 12 , creatinine 0.77. Triglycerides were 82, cholesterol total of 175, LDL 109, HDL 49, TSH 3.3, and hemoglobin A1c of 5.6. White blood cell count 7.4, hemoglobin 14, hematocrit 40, and platelets 187. ESR 31. The patient's transthoracic echocardiogram obtained on 06/15/17 showed EF of 45% , with moderate concentric LVH and low posterolateral wall of the left ventricle moderately hypokinetic. There was a pattern suggestive of diastolic dysfunction. The bubble study was negative for PFO. There was trace mitral regurgitation and tricuspid regurgitation and pulmonic regurgitation. There were no prior studies for comparison. MRI of the brain obtained on 06/14/17, impression: "Small focus of restricted diffusion at the posterior limb of the right internal capsule with corresponding decreased signal consistent with acute or subacute ischemia." CTA of the head and neck obtained on 06/14/17, impression: "Atherosclerosis. No internal carotid artery stenosis. No internal vascular malformation, occlusion or stenosis of the visualized intracranial circulation." CONSULTATIONS DURING THE HOSPITAL STAY: Included Dr. Seals from Neurology. HOSPITALIZATION COURSE: Prema Alcantar is a 67-year-old female with history of discoid lupus, who presented to the hospital complaining of left-sided weakness. She woke up with the weakness and, therefore, she was not a tPA candidate. She was treated with aspirin. She was noted to be markedly hypertensive and initially the hypertension was permitted due to her acute CVA. Later on, she was started on Norvasc, with good blood pressure control. Once her echocardiogram showed LVH with decreased EF, her Norvasc was changed to metoprolol. She was started on Lipitor for dyslipidemia. She continued to have significant left-sided weakness with left arm being basically flaccid, with some movement in her fingers. The left leg at approximately 4/5. She was accepted to our physiotherapy unit for further rehabilitation and treatment. At discharge, the patient is recommended to follow up with Dr. Rasheed after getting home. The patient is recommended to have a followup echocardiogram after treatment with beta-bryce to follow up on the patient's segmental wall motion abnormality as well as lower EF. PHYSICAL EXAMINATION: At the time of discharge, blood pressure 142/50, heart rate of 77 and regular, respiratory rate 16, oxygen saturation 94% on room air, temperature 98.8. General: Patient is a very pleasant 67-year-old female, who is in no acute distress. Alert, awake, and oriented x3. HEENT: Head atraumatic and normocephalic. Eyes: Pupils are equal, round, and reactive to light and accommodation. Oropharynx clear. Mucosa moist. Neck: Supple. No JVD. No bruits bilaterally. Cardiovascular: Regular rate and rhythm. No murmur. Respiratory: Clear to auscultation bilaterally. Abdomen is soft and nontender. Bowel sounds present in all 4 quadrants. Extremities: There is no edema. Pulses are +2 bilaterally. No clubbing or cyanosis. On neuro evaluation, speech is clear. Cranial nerves II through XII grossly intact, although the patient does have mild left nasolabial fold flattening during the evaluation. Motor strength in the left upper extremity is 3+/5, the strength is remaining more distally and the patient is able to move her fingers somewhat. On the left lower extremity, there is motor strength of 4/5. On evaluation of the skin, the patient has excoriations and discoid lupus lesions on her right upper back and shoulder area, as well as bilateral forearms. She has alopecia, likely from discoid lupus and some scarring on her scalp. On psychiatric evaluation, the patient is pleasant and cooperative with evaluation, oriented x3, with no evidence of anxiety or depression. Please note, patient is being discharged under the care of the physiotherapy unit physicians, but we will follow if needed and please call our service for further assistance if needed. Please note that this is a short summary of the patient's hospitalization, please refer to further medical records for details. TIME SPENT: Approximately 45 minutes were spent on the patient's discharge. ADDENDUM: Please note, on the morning of the patient's discharge, patient had an episode of 10 beats of supraventricular tachycardia on telemetry monitored bed. The patient was asymptomatic and was noted to be in a phase of hypokalemia with potassium of 3.4. Her potassium was replaced. She had no further events of arrhythmia noted and she was cleared for discharge to [facility]. [id number]/[facility] #: [id number] Saima- [id number]/[facility] #: [id number] DENYS
--- NOTE | 2017-06-17 04:37 | DS ---
ADDENDUM: Please note, on the morning of the patient's discharge, patient had an episode of 10 beats of supraventricular tachycardia on telemetry monitored bed. The patient was asymptomatic and was noted to be in a phase of hypokalemia with potassium of 3.4. Her potassium was replaced. She had no further events of arrhythmia noted and she was cleared for discharge to [facility]. [id number]/[facility] #: [id number] DENYS
== END 2017-06-16 11:45 | DRG 65 ==
LOC: ED 10:25 → MEDTELE 14:44
PROVIDERS: ADMIT Internal Medicine; ATTEND Internal Medicine
DX: I63.8 Other cerebral infarction (principal); G81.94 Hemiplegia, unspecified affecting left nondominant side; I42.9 Cardiomyopathy, unspecified; E87.1 Hypo-osmolality and hyponatremia; I10 Essential (primary) hypertension; E78.5 Hyperlipidemia, unspecified; F17.210 Nicotine dependence, cigarettes, uncomplicated; L93.0 Discoid lupus erythematosus; Z79.899 Other long term (current) drug therapy; Z80.0 Family history of malignant neoplasm of digestive organs; Z82.3 Family history of stroke; Z82.49 Family history of ischemic heart disease and other diseases of the circulatory system
CPT/HCPCS: 36415; 70496; 70498; 70551; 80048; 80053; 80061; 81003; 83036; 83605; 84443; 84484; 85025; 85610; 85652; 86038; 86140; 86200; 87086; 93005; 93306; 99284; A9270-GY; J0360; J1644; Q9967

== ENCOUNTER 2017-06-16 10:14 | Inpatient (IN) | payer MEDICARE, BC ==
[2017-06-16] MEDS ORDERED: Magnesium Hydroxide LIQ* 30 ML UDC PO PRN (13:05)
[2017-06-16] MEDS ORDERED: Senna TAB PO PRN (13:05)
[2017-06-16] MEDS: Heparin VIAL(*) 5000 UNITS/ML VIAL (FIVE THOUSAND) SUBCUT SCH ×2 (14:07→21:41)
[2017-06-16] MEDS: Atorvastatin* 80 MG TAB PO SCH (17:15)
[2017-06-16] MEDS ORDERED: hydrALAZINE TAB* 10 MG PO PRN (19:47)
[2017-06-16] MEDS: Clobetasol 0.05% OINT* 30 GM TUBE TOPICAL SCH (21:41)
[2017-06-16] MEDS: Docusate CAP* 100 MG PO SCH (21:44)
--- NOTE | 2017-06-16 23:40 | HP ---
ADMISSION HISTORY AND PHYSICAL: DATE OF ADMISSION: 06/16/17 REASON FOR ADMISSION: Stroke with left-sided weakness. HISTORY OF PRESENT ILLNESS: Prema Alcantar is a 67-year-old female. She has a medical history significant for discoid lupus. She normally treats it with clobetasol. The patient was in her usual state of health until 06/13/17. She went to bed that night and got up to urinate somewhere around 1:30 in the morning. She had trouble moving her left leg and she was stumbling to the left side. She figures she was just tired and went to the bathroom and then went back to bed. When she woke up in the morning, she was having some dysarthria as well as difficulty with moving her left side. She called her son and also called a friend who advised her to go to the emergency room. She went to the emergency room that day. She was already well outside the window for tPA. The patient was seen in the emergency room, seen in consultation by Dr. Seals. She had a CT scan of her brain which did not show any evidence of an acute infarct. CT angio of the head was done and showed atherosclerotic disease of the aortic arch, but no significant stenosis in the anterior or posterior circulation, and no evidence of a large vessel occlusion. The patient was started on aspirin a day. Later, Norvasc was added to her medication list. She was also started on Lipitor 80 mg daily. The patient was felt to have physical therapy and occupational therapy needs. She is now being admitted for inpatient rehab so that she might return to independent living. PAST MEDICAL HISTORY: Significant for discoid lupus. The patient did not check her blood pressure regularly. When it was checked in Dr. Rasheed's office , it was usually running high. She felt it was secondary to being nervous about going to the doctor's office. CURRENT MEDICATIONS: Include: 1. Baby aspirin every day. 2. Norvasc every day. 3. Lipitor 80 mg daily. 4. She is also on heparin for DVT prophylaxis. 5. Bowel medications. ALLERGIES: The patient has no known drug allergies. SOCIAL HISTORY: She smokes 5 cigarettes a day, was not a big drinker. Lives in a 2-kelli house, but her bedroom is on the first floor. There were several steps to enter. PHYSICAL EXAMINATION VITAL SIGNS: The patient's temperature is 98.5, blood pressure is 189/81, pulse is 71, respirations 18. HEENT: Extraocular movements are intact. Speech is slightly slurred. She may have some left facial weakness. NECK: Supple. LUNGS: Sounded clear to auscultation bilaterally. HEART: Sounds are regular. S1 and S2 are audible. ABDOMEN: Soft and nontender. EXTREMITIES: Left lower extremity was roughly 4/5. Left upper extremity, she had about 3/5 strength. Left hand administrative fellow was 3- on the left. FUNCTIONAL EXAM: She transfers with mod assist. ASSESSMENT: Cerebrovascular accident with left hemiparesis. MRI of her brain showed an area of restriction diffusion in the posterior limb of the right internal capsule. PLAN: We are going to integrate her into a comprehensive and therapeutic rehab program. We will have the following goals: 1. Physical Therapy will work with the patient. They are going to work on functional transfer training and ambulation training with wheelchair mobility. 2. Occupational Therapy will see the patient and work on her activities of daily living including toileting and toilet transfers. 3. Heparin for DVT prophylaxis. 4. SSRIs including Prozac as indicated. 5. We will continue to monitor her blood pressure. It is running a little high. We may need to add hydralazine. 6. Her bowels will be regulated. 7. human services worker will be closely involved to make sure that any services and equipment that the patient requires are in place prior to discharge. 8. Family training as appropriate. 9. Stroke education as appropriate. 10. Home with appropriate services. ESTIMATED LENGTH OF STAY: Three weeks. [id number]/[facility] #: [id number] DENYS
[2017-06-17] MEDS: Heparin VIAL(*) 5000 UNITS/ML VIAL (FIVE THOUSAND) SUBCUT SCH ×3 (05:55→21:45)
[2017-06-17] MEDS: Aspirin EC Low Dose* 81 MG TAB.EC PO SCH (08:20)
[2017-06-17] MEDS: Docusate CAP* 100 MG PO SCH ×2 (08:20→21:46)
[2017-06-17] MEDS: Clobetasol 0.05% OINT* 30 GM TUBE TOPICAL SCH ×2 (08:20→21:45)
[2017-06-17] MEDS: amLODIPine TAB* 5 MG PO SCH (08:20)
[2017-06-17] MEDS ORDERED: Loperamide CAP* 2 MG PO ONE (11:00)
[2017-06-17] MEDS: Atorvastatin* 80 MG TAB PO SCH (17:09)
--- NOTE | 2017-06-17 18:03 | PN ---
Progress Note Date of Service: 06/17/17 Note: DERIK LANZA was visited. Therapy notes read and reviewed. She did okay today. She had an episode of loose stools this am and she took immodium. Her therapy sessions went well. Able to walk in parallel bars with assistance. BP better today Current Medications: Active Medications Generic Name Dose Route Start Last Admin Trade Name Freq PRN Reason Stop Dose Admin Acetaminophen 650 mg 06/16/17 13:05 Tylenol Tab* PO Q6H PRN FEVER/PAIN Amlodipine Besylate 5 mg 06/17/17 09:00 06/17/17 08:20 Norvasc Tab* PO 5 mg DAILY AMBERLY Administration Aspirin 81 mg 06/17/17 09:00 06/17/17 08:20 Aspirin Ec Low Dose* PO 81 mg DAILY AMBERLY Administration Atorvastatin Calcium 80 mg 06/16/17 17:00 06/17/17 17:09 Lipitor* PO 80 mg 1700 AMBERYL Administration Clobetasol Propionate 1 applic 06/16/17 21:00 06/17/17 08:20 Clobetasol 0.05% Oint* TOPICAL 1 applic BID AMBERLY Administration Docusate Sodium 100 mg 06/16/17 21:00 06/17/17 08:20 Colace Cap* PO 100 mg BID AMBERLY Administration Heparin Sodium (Porcine) 5,000 units 06/16/17 14:00 06/17/17 14:56 Heparin Vial(*) SUBCUT 5,000 units Q8HR AMBERLY Administration Hydralazine HCl 10 mg 06/16/17 19:47 Apresoline Tab* PO Q6H PRN SYSTOLIC BP GREATER THAN: Magnesium Hydroxide 30 ml 06/16/17 13:05 Milk Of Magnesia Liq* PO Q6H PRN CONSTIPATION Senna 2 tab 06/16/17 13:05 Senokot Tab* PO BEDTIME PRN CONSTIPATION Vital Signs: Vital Signs Temp Pulse Resp BP Pulse Ox 97.7 F 75 18 154/77 99 06/17/17 16:20 06/17/17 16:20 06/17/17 16:20 06/17/17 16:20 06/17/17 17:33 Exam: HEENT: speech clear. Face looks symmetric LUNGS: Clear bilaterally HEART: reg rhythm ABDOMEN: Soft NEUROLOGIC: alert and oriented. Left sided weakness arm>leg Assessment/Plan: 1. Right CVA with left hemiparesis: Lipitor/ASA. PT/OT 2. Hypertension: Norvasc. BP better 3. DVT prophylaxis: Heparin S/Q 4. Discoid Lupus: Clobetasol 5. Advanced directives: full code 06/17/17 18:00
[2017-06-17] MEDS: Acetaminophen TAB* 325 MG PO PRN (19:01)
[2017-06-18] MEDS: Heparin VIAL(*) 5000 UNITS/ML VIAL (FIVE THOUSAND) SUBCUT SCH ×3 (06:02→21:45)
[2017-06-18 06:21] LABS: ABS Basophils 0 10^3/ul (0-0.2); ABS Eosinophils 0.2 10^3/ul (0-0.6); ABS Lymphocytes 1.7 10^3/ul (1.0-4.8); ABS Monocytes 0.7 10^3/ul (0-0.8); ABS Neutrophils 4.1 10^3/ul (1.5-7.7); ABS Nucleated RBC 0 10^3/ul; Eosinophil % 2.3 % (0-6); Hematocrit 38 % (35-47); Hemoglobin 13.5 g/dl (12.0-16.0); Lymphocyte % 25.3 % (25-47); Mean Corpuscular HGB Conc 35 g/dl (31-36); Mean Corpuscular Hemoglobin 32 pg (27-31); Mean Corpuscular Volume 92 fL (80-97); Mean Platelet Volume 9 um3 (7.4-10.4); Nucleated Red Blood Cells % 0.1; Platelet Count 159 10^3/ul (150-450); Red Blood Count 4.19 10^6/ul (4.0-5.4); Red Cell Distribution Width 14 % (10.5-15); White Blood Count 6.6 10^3/ul (3.5-10.8)
[2017-06-18 06:29] LABS: EGFR Non-African American 78.3 (>60)
[2017-06-18] MEDS: Aspirin EC Low Dose* 81 MG TAB.EC PO SCH (08:58)
[2017-06-18] MEDS: amLODIPine TAB* 5 MG PO SCH (08:58)
[2017-06-18] MEDS: Clobetasol 0.05% OINT* 30 GM TUBE TOPICAL SCH ×2 (09:33→20:21)
[2017-06-18] MEDS: Docusate CAP* 100 MG PO SCH ×2 (09:33→20:21)
[2017-06-18] MEDS ORDERED: Loperamide CAP* 2 MG PO ONE (10:04)
--- NOTE | 2017-06-18 10:31 | PN ---
Progress Note Date of Service: 06/18/17 Note: DERIK LANZA was visited. Nursing and therapy notes read and reviewed. She thinks she is getting diarrhea from milk. Requests imodium again this morning and then will stop drinking milk in AM. No chest pain, shortness of breath or abdominal pain. Wants coffee. Current Medications: Active Medications Generic Name Dose Route Start Last Admin Trade Name Freq PRN Reason Stop Dose Admin Acetaminophen 650 mg 06/16/17 13:05 06/17/17 19:01 Tylenol Tab* PO 650 mg Q6H PRN Administration FEVER/PAIN Amlodipine Besylate 5 mg 06/17/17 09:00 06/18/17 08:58 Norvasc Tab* PO 5 mg DAILY AMBERLY Administration Aspirin 81 mg 06/17/17 09:00 06/18/17 08:58 Aspirin Ec Low Dose* PO 81 mg DAILY AMBERLY Administration Atorvastatin Calcium 80 mg 06/16/17 17:00 06/17/17 17:09 Lipitor* PO 80 mg 1700 AMBERLY Administration Clobetasol Propionate 1 applic 06/16/17 21:00 06/18/17 09:33 Clobetasol 0.05% Oint* TOPICAL 1 applic BID AMBERLY Administration Docusate Sodium 100 mg 06/16/17 21:00 06/18/17 09:33 Colace Cap* PO Not Given BID AMBERLY Heparin Sodium (Porcine) 5,000 units 06/16/17 14:00 06/18/17 06:02 Heparin Vial(*) SUBCUT 5,000 units Q8HR AMBERLY Administration Hydralazine HCl 10 mg 06/16/17 19:47 Apresoline Tab* PO Q6H PRN SYSTOLIC BP GREATER THAN: Magnesium Hydroxide 30 ml 06/16/17 13:05 Milk Of Magnesia Liq* PO Q6H PRN CONSTIPATION Senna 2 tab 06/16/17 13:05 Senokot Tab* PO BEDTIME PRN CONSTIPATION Vital Signs: Vital Signs Temp Pulse Resp BP Pulse Ox 98.3 F 71 20 156/63 97 06/18/17 04:17 06/18/17 04:17 06/18/17 08:00 06/18/17 04:17 06/18/17 08:00 Lab Results: Laboratory Results - last 24 hr 06/18/17 06/18/17 06:03 06:03 WBC 6.6 RBC 4.19 Hgb 13.5 Hct 38 MCV 92 MCH 32 H MCHC 35 RDW 14 Plt Count 159 MPV 9 Neut % (Auto) 61.7 Lymph % (Auto) 25.3 [place] % (Auto) 10.2 H Eos % (Auto) 2.3 Baso % (Auto) 0.5 Absolute Neuts (auto) 4.1 Absolute Lymphs (auto) 1.7 Absolute Monos (auto) 0.7 Absolute Eos (auto) 0.2 Absolute Basos (auto) 0 Absolute Nucleated RBC 0 Nucleated RBC % 0.1 Sodium 132 L Potassium 4.1 Chloride 102 Carbon Dioxide 24 Anion Gap 6 BUN 23 Creatinine 0.74 Est GFR ( Amer) 100.7 Est GFR (Non-Af Amer) 78.3 BUN/Creatinine Ratio 31.1 H Glucose 96 Calcium 9.4 Total Bilirubin 0.50 AST 32 ALT 17 Alkaline Phosphatase 69 Total Protein 6.5 Albumin 3.5 Globulin 3.0 Albumin/Globulin Ratio 1.2 Exam: GEN: No acute distress. Alert and appropriate. HEENT: speech clear. Face looks symmetric LUNGS: Clear bilaterally HEART: regular rate and rhythm ABDOMEN: Soft, +BS, non-tender, non-distended. 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 Sensation is intact. EXT: no edema. Assessment/Plan: 67yo woman with CVA 1. Right CVA with left hemiparesis: Lipitor/ASA. PT/OT 2. Hypertension: Norvasc. BP better 3. DVT prophylaxis: Heparin S/Q 4. Discoid Lupus: Clobetasol 5. Advanced directives: full code 6. Diarrhea: Imodium today and she will avoid milk. Today is better than yesterday so far. 7. Est LOS: IP today. 06/18/17 10:30
--- NOTE | 2017-06-18 12:47 | PMRUTEAM ---
PMRU: Goals Current Status: Nursing: Current Status Skin Deviations [Coccyx] Rash,Other Skin Deviations [Right Upper Rash,Other Back] Skin Deviation Description [ discoid lupus Coccyx] Skin Deviation Description [ discoid lupus Right Upper Back] Physical Therapy: Current Status Bed Mobility Assistance Independent Transfer Moblility Assistance min A x2 Transfer/Bed Mobility Rolling walker Recommended Devices Ambulation Assistance mod A Ambulation Assistive Devices Rolling Walker Number of Feet Patient 80' Ambulated Stairs Assistance Not Tested Stairs Recommended Devices One Rail Number of Stairs Flight Curb Not Tested Occupational Therapy: Current Status Upper Body Dressing Min Assist Lower Body Dressing Contact Guard Assist Bathing Contact Guard Assist Toileting Mod Assist Toilet Transfer Contact Guard Assist Shower Transfer Min Assist Eating Independent Rec Therapy: Current Status Summary of Assessment and Pt. states she enjoys her life very much. Pt. was Clinical Impression tearful when talking about her . Pt. identified with numerous interests and active involvement in them prior to admission. Pt. was open to continued leisure visits while on the unit . Treatment Goals Pt. will engage in leisure activities while on the unit. Treatment Plan Provide RT services and encourage involvement. Social Work: Current Status Discharge Plan return home with home care svs and family support Potential for Family Training pt's family is involved and supportive Anticipated Discharge Home Destination Discharge With home care svs and family support Goals: Physical Therapy: Initial Goals Bed Mobility Assistance Independent Transfer Mobility Assistance Independent Transfer/Bed Mobility Rolling Walker Recommended Devices Ambulation Independent Ambulation Recommended Devices Rolling Walker Ambulation Distance 150 Stairs Assistance Independent Stair Recommended Devices Two Rails Number of Stairs 13 Occupational Therapy: Initial Goals Goals to be Completed in (Days 14-17 ) Upper Body Bathing Routine Independent Lower Body Bathing Routine Modified Independent with Upper Body Dressing Routine Independent Lower Body Dressing Routine Modified Independent with Toilet Hygeine and Clothing Modified Independent with Management Routine Toilet Transfer Routine Modified Independent with Step-In Shower Transfer Modified Independent with Routine Tub Transfer Routine Modified Independent with Functional Transfers for ADL Modified Independent with Grooming Routine Independent Feeding Routine Independent Social Work: Goals Discharge Plan return home with home care svs and family support Potential for Family Training pt's family is involved and supportive Anticipated Discharge Home Destination Discharge With home care svs and family support Care Plan: Care Plan ADL's - Improve/Maintain Start: 06/17/17 14:13 Freq: DAILY Status: Active Target: Protocol: Activity Type Activity Date Activity User E-Sign Co-Sign Detail Recorded Client Recorded Date Recorded By Document 06/18/17 11:21 [id number] [id number] 06/18/17 11:21 [id number] 06/18/17 11:21 PMRU Outcome: ADL's/ADL Transfers Orders/Interventions Occupational Therapy Evaluation & Treatment Communication Tool in Patient Room Patient to receive OT 5x/wk for 60-120 Therex min/day Self Care Management Group Therapy Neuromuscular ReEducation UE/LE ADL's with Assist Yes ADL Transfers with Assist Yes Toileting: Transfers,Clothing Management Yes ,Hygeine w/Assist Light Kitchen/Laundry w/Assist Yes Progression Toward Outcome/Goals Progressing Outcome/Goals Met Pt making excellent daily gains in LUE strength, AROM and coordination. Pt's dynamic standing balance is also notably better today as she is able to complete LB dressing without assistance from senior writer or falling back into the chair. Pt remains highly motivated throughout the rehab process. Cardiovascular- Improve/Maintain Start: 06/16/17 17:37 Freq: DAILY Status: Active Target: Protocol: Activity Type Activity Date Activity User E-Sign Co-Sign Detail Recorded Client Recorded Date Recorded By Document 06/18/17 00:40 [id number] [id number] 06/18/17 00:46 [id number] 06/18/17 00:40 PMRU Outcome: Cardiovascular Vital Signs q Shift for 48hrs Then BID Yes Daily Weight Ordered No Current Cardiovascular Outcome/Goal Maintain/ Achieve Baseline HR, BP , Perfusion Maintain/ Improve Perfusion Free of Abnormal Cardiac Symptoms Progression Toward Outcome/Goal Progressing Coping/Psych-Improve/Maintain Start: 06/16/17 17:37 Freq: DAILY Status: Active Target: Protocol: Activity Type Activity Date Activity User E-Sign Co-Sign Detail Recorded Client Recorded Date Recorded By Document 06/18/17 00:40 [id number] 06/18/17 00:46 [id number] 06/18/17 00:40 PMRU Outcome: Coping/Psychosocial Coping Outcome/Goals Verbalization of Acceptance of Rehab Admit Utilization of Appropriate Problem Solving Techniques Psychosocial Outcome/Goals Maintain/ Improve Emotional Health Progression Toward Outcome/Goals - Progressing Coping Progression Toward Outcome/Goals - Progressing Psychosocial DVT Prophylaxis- Improve/Maintain Start: 06/16/17 17:37 Freq: DAILY Status: Active Target: Protocol: Activity Type Activity Date Activity User E-Sign Co-Sign Detail Recorded Client Recorded Date Recorded By Document 06/18/17 00:40 [id number] [id number] 06/18/17 00:46 [id number] 06/18/17 00:40 PMRU Outcome: DVT Prophylaxis Outcome/Goals Remains Free of DVT Complies with DVT Prophylaxis /Treatment Progression Toward Outcome/Goals Progressing Discharge Planning - Improve/Maintain Start: 06/16/17 17:37 Freq: DAILY Status: Active Target: Protocol: Activity Type Activity Date Activity User E-Sign Co-Sign Detail Recorded Client Recorded Date Recorded By Document 06/17/17 00:48 [id number] [id number] 06/17/17 00:49 [id number] 06/17/17 00:48 PMRU Outcome: Discharge Planning Update Patient Family No Outcome/Goals Demonstrates Understanding of Discharge Plan Education-Improve/Maintain Start: 06/16/17 17:37 Freq: DAILY Status: Active Target: Protocol: Activity Type Activity Date Activity User E-Sign Co-Sign Detail Recorded Client Recorded Date Recorded By Document 06/18/17 00:40 [id number] [id number] 06/18/17 00:46 [id number] 06/18/17 00:40 PMRU Outcome: Education Outcome/Goals Demonstrate/ Verbalize Understanding of Written Discharge Instructions Encourage Questions Progression Toward Outcome/Goals Progressing Mobility- Improve/Maintain Start: 06/16/17 17:29 Freq: DAILY Status: Active Target: Protocol: Activity Type Activity Date Activity User E-Sign Co-Sign Detail Recorded Client Recorded Date Recorded By Document 06/17/17 12:50 [id number] [id number] 06/17/17 12:50 [id number] 06/17/17 12:50 PMRU Outcome: Mobility Physical Therapy Evaluation and Yes Treatment Activity OOB with Assistance Yes WBAT Yes Device Yes Assistance Yes Patient to be seen 5x/wk for 60-120 min/ Therex day for: Mobility Training Gait Training Balance Other Outcome/Goals Maintain/ Achieve Baseline Mobility Status Improve Mobility Status Demonstrates Proper Use of Assistive Devices Free from Complications of Immobility Progression Toward Outcome/Goals Progressing Bed Mobility Yes: independent Transfers Yes: independent with rolling walker Gait x ft Yes: independent with rolling walker 150' Up/Down Stairs Yes: independnet up/ down 12 stairs with 2 rails. Safety- Improve/Maintain Start: 02/28/18 17:37 Freq: DAILY Status: Active Target: Protocol: Activity Type Activity Date Activity User E-Sign Co-Sign Detail Recorded Client Recorded Date Recorded By Document 06/18/17 00:40 [id number] [id number] 06/18/17 00:46 [id number] 06/18/17 00:40 PMRU Outcome: Safety Outcome/Goals Remain Free of Injury or Harm Cooperates with Safety Measures for Least Restrictive Environment Prevent Falls/ Injury Progression Toward Outcome/Goals Progressing Medicine Note: Length of Stay: [2 weeks] Anticipated Discharge Destination: Home Tentative Discharge Date: [07/02/17] Discharged to: [home]
[2017-06-18] MEDS: Atorvastatin* 80 MG TAB PO SCH (17:29)
[2017-06-18] MEDS: Acetaminophen TAB* 325 MG PO PRN (19:41)
[2017-06-19] MEDS: Heparin VIAL(*) 5000 UNITS/ML VIAL (FIVE THOUSAND) SUBCUT SCH ×3 (05:21→21:08)
[2017-06-19] MEDS: amLODIPine TAB* 5 MG PO SCH (08:41)
[2017-06-19] MEDS: Aspirin EC Low Dose* 81 MG TAB.EC PO SCH (08:41)
[2017-06-19] MEDS: Docusate CAP* 100 MG PO SCH (08:42)
[2017-06-19] MEDS: Clobetasol 0.05% OINT* 30 GM TUBE TOPICAL SCH ×2 (08:42→21:10)
[2017-06-19] MEDS ORDERED: Docusate CAP* 100 MG PO PRN (10:20)
--- NOTE | 2017-06-19 10:26 | PN ---
Progress Note Date of Service: 06/19/17 Note: DERIK LANZA was visited. Nursing and therapy notes read and reviewed. Her stools are still loose, but today is better than yesterday and the day before. She continues to try to adjust her diet. She has her own topical for her skin condition (mometasone) that she uses daily. No chest pain, shortness of breath or abdominal pain. Current Medications: Active Medications Generic Name Dose Route Start Last Admin Trade Name Freq PRN Reason Stop Dose Admin Acetaminophen 650 mg 06/16/17 13:05 06/18/17 19:41 Tylenol Tab* PO 650 mg Q6H PRN Administration FEVER/PAIN Amlodipine Besylate 5 mg 06/17/17 09:00 06/19/17 08:41 Norvasc Tab* PO 5 mg DAILY AMBERLY Administration Aspirin 81 mg 06/17/17 09:00 06/19/17 08:41 Aspirin Ec Low Dose* PO 81 mg DAILY AMBERLY Administration Atorvastatin Calcium 80 mg 06/16/17 17:00 06/18/17 17:29 Lipitor* PO 80 mg 1700 AMBERLY Administration Clobetasol Propionate 1 applic 06/16/17 21:00 06/19/17 08:42 Clobetasol 0.05% Oint* TOPICAL Not Given BID AMBERLY Docusate Sodium 100 mg 06/19/17 10:20 Colace Cap* PO BID PRN CONSTIPATION Heparin Sodium (Porcine) 5,000 units 06/16/17 14:00 06/19/17 05:21 Heparin Vial(*) SUBCUT 5,000 units Q8HR AMBERLY Administration Hydralazine HCl 10 mg 06/16/17 19:47 Apresoline Tab* PO Q6H PRN SYSTOLIC BP GREATER THAN: Magnesium Hydroxide 30 ml 06/16/17 13:05 Milk Of Magnesia Liq* PO Q6H PRN CONSTIPATION Non-Formulary Medication 1 each 06/20/17 09:00 Mometasone 0.1% Topical Cream TOPICAL DAILY AMBERLY Senna 2 tab 06/16/17 13:05 Senokot Tab* PO BEDTIME PRN CONSTIPATION Vital Signs: Vital Signs Temp Pulse Resp BP Pulse Ox 98.4 F 65 16 153/63 98 06/19/17 05:01 06/19/17 05:01 06/19/17 05:01 06/19/17 05:01 06/19/17 05:01 Exam: GEN: No acute distress. Alert and appropriate. LUNGS: Clear bilaterally HEART: regular rate and rhythm ABDOMEN: Soft, +BS, non-tender, non-distended. NEUROLOGIC: Left side motor - deltoid 4, biceps 4, triceps 4, ECR 4, research development manager 4, hip flexion 4, KE 4, DF 4, EHL 4. Sensation is intact. EXT: no edema. Assessment/Plan: 67yo woman with CVA 1. Right CVA with left hemiparesis: Lipitor/ASA. PT/OT 2. Hypertension: Norvasc. BP better 3. DVT prophylaxis: Heparin S/Q 4. Discoid Lupus: Clobetasol. Mometasone - she can use her own. 5. Advanced directives: full code 6. Diarrhea: Continue to monitor. Consider metamucil. Possibly a side effect of atorvastatin. 7. Est LOS: 07/02/17 06/19/17 10:24
[2017-06-19] MEDS: Acetaminophen TAB* 325 MG PO PRN ×2 (13:54→22:15)
[2017-06-19] MEDS: Atorvastatin* 80 MG TAB PO SCH (16:55)
[2017-06-20] MEDS: Heparin VIAL(*) 5000 UNITS/ML VIAL (FIVE THOUSAND) SUBCUT SCH ×3 (05:26→21:22)
[2017-06-20] MEDS: Aspirin EC Low Dose* 81 MG TAB.EC PO SCH (07:51)
[2017-06-20] MEDS: amLODIPine TAB* 5 MG PO SCH (07:51)
[2017-06-20] MEDS: Clobetasol 0.05% OINT* 30 GM TUBE TOPICAL SCH ×2 (07:54→21:36)
[2017-06-20] MEDS ORDERED: amLODIPine TAB* 5 MG PO ONE (09:10)
[2017-06-20] MEDS: MOMETASONE 0.1% TOPICAL SCH (10:05)
[2017-06-20] MEDS ORDERED: Loperamide CAP* 2 MG PO PRN (11:16)
--- NOTE | 2017-06-20 11:24 | PN ---
Progress Note Date of Service: 06/20/17 Note: DERIK LANZA was visited. Nursing and therapy notes read and reviewed. She had loose stools last night and wants imodium prn. No chest pain, shortness of breath or abdominal pain. Her stools are more formed but looser than they should be. She can get to the bathroom and has not had any incontinence. She is getting stronger daily and is pleased about this. Current Medications: Active Medications Generic Name Dose Route Start Last Admin Trade Name Freq PRN Reason Stop Dose Admin Acetaminophen 650 mg 06/16/17 13:05 06/19/17 22:15 Tylenol Tab* PO 650 mg Q6H PRN Administration FEVER/PAIN Amlodipine Besylate 10 mg 06/21/17 09:00 Norvasc Tab* PO DAILY AMBERLY Aspirin 81 mg 06/17/17 09:00 06/20/17 07:51 Aspirin Ec Low Dose* PO 81 mg DAILY AMBERLY Administration Atorvastatin Calcium 80 mg 06/16/17 17:00 06/19/17 16:55 Lipitor* PO 80 mg 1700 AMBERLY Administration Clobetasol Propionate 1 applic 06/16/17 21:00 06/20/17 07:54 Clobetasol 0.05% Oint* TOPICAL Not Given BID AMBERLY Docusate Sodium 100 mg 06/19/17 10:20 Colace Cap* PO BID PRN CONSTIPATION Heparin Sodium (Porcine) 5,000 units 06/16/17 14:00 06/20/17 05:26 Heparin Vial(*) SUBCUT 5,000 units Q8HR AMBERLY Administration Hydralazine HCl 10 mg 06/16/17 19:47 Apresoline Tab* PO Q6H PRN SYSTOLIC BP GREATER THAN: Loperamide HCl 2 mg 06/20/17 11:16 Imodium Cap* PO DAILY PRN DIARRHEA Magnesium Hydroxide 30 ml 06/16/17 13:05 Milk Of Magnesia Liq* PO Q6H PRN CONSTIPATION Pto: Mometasone 0.1% 1 each 06/20/17 09:00 06/20/17 10:05 Topical Cream TOPICAL 1 each DAILY AMBERLY Administration Senna 2 tab 06/16/17 13:05 Senokot Tab* PO BEDTIME PRN CONSTIPATION Vital Signs: Vital Signs Temp Pulse Resp BP Pulse Ox 97.9 F 75 20 167/76 98 06/20/17 05:31 03/04/18 05:31 06/20/17 05:31 06/20/17 05:31 06/20/17 05:31 Exam: GEN: No acute distress. Alert and appropriate. LUNGS: Clear bilaterally HEART: regular rate and rhythm ABDOMEN: Soft, +BS, non-tender, non-distended. NEUROLOGIC: Left side motor - deltoid 4, biceps 4, triceps 4, ECR 4, hunter trapper 4, ADM 3, hip flexion 4, KE 4, DF 4, EHL 4. Sensation is intact. EXT: no edema. Assessment/Plan: 67yo woman with CVA 1. Right CVA with left hemiparesis: Lipitor/ASA. PT/OT 2. Hypertension: Norvasc increased to 10mg qday starting 06/20/17. 3. DVT prophylaxis: Heparin S/Q 4. Discoid Lupus: Clobetasol. Mometasone - she can use her own. 5. Advanced directives: full code 6. Diarrhea: Continue to monitor. To her it is an annoyance, especially since it seems worse at night. I d/w her this is possibly a side effect of atorvastatin which is helpful for plaque stabilization after CVA. We discussed monitoring labs for atorvastatin and foods that may help bulk stool. Will order imodium 2mg qday prn and discussed this should not be routine. If loose stools are persisting may need to consider other options. Maybe changing the timing of atorvastatin would help. 7. Advanced directives: Full code. She does not have a HCP, but if she could not make them for herself it would be her son, daughter or sister. 8. Est LOS: 07/02/17 06/20/17 11:24
[2017-06-20] MEDS: Acetaminophen TAB* 325 MG PO PRN ×2 (12:33→21:21)
[2017-06-20] MEDS: Atorvastatin* 80 MG TAB PO SCH (17:01)
[2017-06-21] MEDS: Heparin VIAL(*) 5000 UNITS/ML VIAL (FIVE THOUSAND) SUBCUT SCH ×3 (05:31→21:03)
[2017-06-21] MEDS: amLODIPine TAB* 5 MG PO SCH (09:47)
[2017-06-21] MEDS: Aspirin EC Low Dose* 81 MG TAB.EC PO SCH (09:47)
[2017-06-21] MEDS: Acetaminophen TAB* 325 MG PO PRN ×2 (14:25→21:01)
[2017-06-21] MEDS: MOMETASONE 0.1% TOPICAL SCH (15:55)
[2017-06-21] MEDS: Clobetasol 0.05% OINT* 30 GM TUBE TOPICAL SCH ×2 (15:55→21:03)
--- NOTE | 2017-06-21 16:57 | PN ---
Progress Note Date of Service: 06/21/17 Note: DERIK LANZA was visited. Therapy notes read and reviewed. She seems to be in good spirits. She is having good return in her left hand and leg. Current Medications: Active Medications Generic Name Dose Route Start Last Admin Trade Name Freq PRN Reason Stop Dose Admin Acetaminophen 650 mg 06/16/17 13:05 06/21/17 14:25 Tylenol Tab* PO 650 mg Q6H PRN Administration FEVER/PAIN Amlodipine Besylate 10 mg 06/21/17 09:00 06/21/17 09:47 Norvasc Tab* PO 10 mg DAILY AMBERLY Administration Aspirin 81 mg 06/17/17 09:00 06/21/17 09:47 Aspirin Ec Low Dose* PO 81 mg DAILY AMBERLY Administration Atorvastatin Calcium 80 mg 06/16/17 17:00 06/20/17 17:01 Lipitor* PO 80 mg 1700 AMBERLY Administration Clobetasol Propionate 1 applic 06/16/17 21:00 06/21/17 15:55 Clobetasol 0.05% Oint* TOPICAL Not Given BID AMBERLY Docusate Sodium 100 mg 06/19/17 10:20 Colace Cap* PO BID PRN CONSTIPATION Heparin Sodium (Porcine) 5,000 units 06/16/17 14:00 06/21/17 14:23 Heparin Vial(*) SUBCUT 5,000 units Q8HR AMBERLY Administration Hydralazine HCl 10 mg 06/16/17 19:47 Apresoline Tab* PO Q6H PRN SYSTOLIC BP GREATER THAN: Loperamide HCl 2 mg 06/20/17 11:16 Imodium Cap* PO DAILY PRN DIARRHEA Magnesium Hydroxide 30 ml 06/16/17 13:05 Milk Of Magnesia Liq* PO Q6H PRN CONSTIPATION Pto: Mometasone 0.1% 1 each 06/20/17 09:00 06/21/17 15:55 Topical Cream TOPICAL Not Given DAILY AMBERLY Senna 2 tab 06/16/17 13:05 Senokot Tab* PO BEDTIME PRN CONSTIPATION Vital Signs: Vital Signs Temp Pulse Resp BP Pulse Ox 99.1 F 76 16 151/94 100 06/21/17 15:38 06/21/17 15:38 06/21/17 15:38 06/21/17 15:38 06/21/17 15:38 Exam: LUNGS: Clear bilaterally HEART: regular rate and rhythm ABDOMEN: Soft, +BS, non-tender, non-distended. NEUROLOGIC: Left hand international logistics manager 4/5, left leg 4/5 in most muscles. Sensation is intact. EXT: no edema. Assessment/Plan: 1. Right CVA with left hemiparesis: Lipitor/ASA. PT/OT 2. Hypertension: Norvasc increased to 10mg qday starting 06/20/17. 3. DVT prophylaxis: Heparin S/Q 4. Discoid Lupus: Clobetasol. Mometasone - she can use her own. 5. Advanced directives: full code 6. Diarrhea: Continue to monitor. If loose stools are persisting may need to consider other options. Maybe changing the timing of atorvastatin would help. 7. Advanced directives: Full code. She does not have a HCP. 06/21/17 16:59
[2017-06-21] MEDS: Atorvastatin* 80 MG TAB PO SCH (17:00)
[2017-06-22] MEDS: Heparin VIAL(*) 5000 UNITS/ML VIAL (FIVE THOUSAND) SUBCUT SCH ×3 (05:33→21:05)
[2017-06-22] MEDS: Aspirin EC Low Dose* 81 MG TAB.EC PO SCH (08:24)
[2017-06-22] MEDS: amLODIPine TAB* 5 MG PO SCH (08:24)
--- NOTE | 2017-06-22 12:48 | PMRUTEAM ---
PMRU: Goals Current Status: Nursing: Current Status Skin Deviations [Coccyx] Other Skin Deviations [Right Upper Other Back] Skin Deviation Description [ discoid lupus lesions Coccyx] Skin Deviation Description [ discoid lupus lesions Right Upper Back] Physical Therapy: Current Status Bed Mobility Assistance Independent Transfer Moblility Assistance Supervision Transfer/Bed Mobility Rolling Walker Recommended Devices Transfer Mobility Comment Pt. is able to perform transfer using a 2 w/w S x 1. Ambulation Assistance Supervision Ambulation Assistive Devices Rolling Walker Number of Feet Patient 200' Ambulated Ambulation Comment Improving reciprocal type gait with improved balance. Stairs Assistance Supervision Stairs Recommended Devices Two Rails Number of Stairs 10 Curb Not Tested Objective Comments patient attempts stairs for first time this date, needs cuing for procedure. has difficutly with LLE foot clearance in movemnt to stand. patient needs cuing for step to step ascent and descent. Occupational Therapy: Current Status Upper Body Dressing Min Assist Upper Body Dressing Progress assist only for bra strap, supervision otherwise, will not wear bras at janell Lower Body Dressing Supervision Lower Body Dressing Progress FWW Bathing Supervision Bathing Progress FWW Toileting Supervision Toileting Progress FWW Toilet Transfer Supervision Toilet Transfer Progress FWW Shower Transfer Contact Guard Assist Shower Transfer Progress FWW Eating Independent Eating Progress setupA Rec Therapy: Current Status Summary of Assessment and RT assessment completed 06/16. Clinical Impression Treatment Goals Patient will engage in recreation and leisure activities while on the unit. Treatment Plan Will follow up with patient regularly for leisure visits and provide recreational activities as appropriate. Social Work: Current Status Discharge Plan return home with home care svs and family support Potential for Family Training pt's family is involved and supportive Anticipated Discharge Home Destination Discharge With home care svs and family support Nutrition: Current Status Monitoring pt eating independently at meals; good po intake noted (75-100%), although pt requested smaller portions. Denies difficulty chewing/swallowing. 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 Wt trending back up. Regular soft BMs noted. No acute nutrition concerns identified. Goals: Physical Therapy: Initial Goals Bed Mobility Assistance Independent Transfer Mobility Assistance Independent Transfer/Bed Mobility Rolling Walker Recommended Devices Ambulation Independent Ambulation Recommended Devices Rolling Walker Ambulation Distance 150 Stairs Assistance Independent Stair Recommended Devices Two Rails Number of Stairs 13 Physical Therapy: Updated Goals Bed Mobility Assistance Independent Transfer Mobility Assistance Independent Transfer/Bed Mobility Rolling Walker Recommended Devices Ambulation Assistive Devices Rolling Walker Ambulation Distance (ft) 150 Stairs Assistance Independent Stairs Recommended Devices Two Rails Number of Stairs 13 Home Exercise Program Independent Assistance Occupational Therapy: Initial Goals Goals to be Completed in (Days 14-17 ) Upper Body Bathing Routine Independent Lower Body Bathing Routine Modified Independent with Upper Body Dressing Routine Independent Lower Body Dressing Routine Modified Independent with Toilet Hygeine and Clothing Modified Independent with Management Routine Toilet Transfer Routine Modified Independent with Step-In Shower Transfer Modified Independent with Routine Tub Transfer Routine Modified Independent with Functional Transfers for ADL Modified Independent with Grooming Routine Independent Feeding Routine Independent Nutrition: Goals Intervention Goals 1. po intake will remain adequate to meet needs for wt maintenance (175+ +/- 5%) 2. maintenance of regular bowel pattern without diarrhea/constipation Social Work: Goals Discharge Plan return home with home care svs and family support Potential for Family Training pt's family is involved and supportive Anticipated Discharge Home Destination Discharge With home care svs and family support Care Plan: Care Plan ADL's - Improve/Maintain Start: 06/17/17 14:13 Freq: DAILY Status: Active Target: Protocol: Activity Type Activity Date Activity User E-Sign Co-Sign Detail Recorded Client Recorded Date Recorded By Document 06/22/17 11:44 [id number] 06/22/17 11:44 [id number] 06/22/17 11:44 PMRU Outcome: ADL's/ADL Transfers Orders/Interventions Occupational Therapy Evaluation & Treatment Communication Tool in Patient Room Patient to receive OT 5x/wk for 60-120 Therex min/day Self Care Management Group Therapy Neuromuscular ReEducation UE/LE ADL's with Assist Yes ADL Transfers with Assist Yes Toileting: Transfers,Clothing Management Yes ,Hygeine w/Assist Light Kitchen/Laundry w/Assist Yes Progression Toward Outcome/Goals Progressing Outcome/Goals Met Improved dexterity and coordination of L hand. Developing more funcitonal grasp patterns. Nearing achievement of ADL goals. Will attempt IADL task in next 2 days. Should be ready for d/c by Wednesday. Cardiovascular- Improve/Maintain Start: 06/16/17 17:37 Freq: DAILY Status: Active Target: Protocol: Activity Type Activity Date Activity User E-Sign Co-Sign Detail Recorded Client Recorded Date Recorded By Document 06/22/17 01:01 [id number] 06/22/17 01:04 [id number] 06/22/17 01:01 PMRU Outcome: Cardiovascular Vital Signs q Shift for 48hrs Then BID Yes Daily Weight Ordered No Current Cardiovascular Outcome/Goal Maintain/ Achieve Baseline HR, BP , Perfusion Improve HR Within Prescribed Parameters Maintain/ Improve Perfusion Maintain/ Achieve Hemodynamic Stability Progression Toward Outcome/Goal Progressing Coping/Psych-Improve/Maintain Start: 06/16/17 17:37 Freq: DAILY Status: Active Target: Protocol: Activity Type Activity Date Activity User E-Sign Co-Sign Detail Recorded Client Recorded Date Recorded By Document 06/22/17 01:01 [id number] 06/22/17 01:04 [id number] 06/22/17 01:01 PMRU Outcome: Coping/Psychosocial Coping Outcome/Goals Verbalization of Acceptance of Rehab Admit Verbalization of Sense of Control Over Health Status Utilization of Appropriate Problem Solving Techniques Willingness to Participate in Treatment Plan and Basic Needs Utilization of Available Support Systems Absence of Destructive Behavior to Self/Others Psychosocial Outcome/Goals Maintain/ Improve Emotional Health Cooperate/ Participate in Plan Progression Toward Outcome/Goals - Progressing Coping Progression Toward Outcome/Goals - Progressing Psychosocial DVT Prophylaxis- Improve/Maintain Start: 06/16/17 17:37 Freq: DAILY Status: Active Target: Protocol: Activity Type Activity Date Activity User E-Sign Co-Sign Detail Recorded Client Recorded Date Recorded By Document 06/22/17 01:01 [id number] 06/22/17 01:04 06/22/17 01:01 PMRU Outcome: DVT Prophylaxis Outcome/Goals Remains Free of DVT Complies with DVT Prophylaxis /Treatment Demonstrates Knowledge of DVT Prevention/ Treatment TEDS Stockings on Every AM, Off at HS Progression Toward Outcome/Goals Progressing Discharge Planning - Improve/Maintain Start: 06/16/17 17:37 Freq: DAILY Status: Active Target: Protocol: Activity Type Activity Date Activity User E-Sign Co-Sign Detail Recorded Client Recorded Date Recorded By Document 06/21/17 19:40 [id number] 06/21/17 19:41 [id number] 06/21/17 19:40 PMRU Outcome: Discharge Planning Identify Patient Needs yes Update Patient Family No Outcome/Goals Demonstrates Understanding of Discharge Plan Progression Toward Outcome/Goals Progressing Education-Improve/Maintain Start: 06/16/17 17:37 Freq: DAILY Status: Active Target: Protocol: Activity Type Activity Date Activity User E-Sign Co-Sign Detail Recorded Client Recorded Date Recorded By Document 06/22/17 01:01 [id number] 06/22/17 01:04 [id number] 06/22/17 01:01 PMRU Outcome: Education Outcome/Goals Demonstrate/ Verbalize Understanding of Written Discharge Instructions Demonstrates Skills Encourage Questions Progression Toward Outcome/Goals Progressing Mobility- Improve/Maintain Start: 06/16/17 17:29 Freq: DAILY Status: Active Target: Protocol: Activity Type Activity Date Activity User E-Sign Co-Sign Detail Recorded Client Recorded Date Recorded By Document 06/21/17 12:42 [id number] 06/21/17 12:42 [id number] 06/21/17 12:42 PMRU Outcome: Mobility Physical Therapy Evaluation and Yes Treatment Activity OOB with Assistance Yes WBAT Yes Device Yes Assistance Yes Patient to be seen 5x/wk for 60-120 min/ Therex day for: Mobility Training Gait Training Balance Other Outcome/Goals Maintain/ Achieve Baseline Mobility Status Improve Mobility Status Demonstrates Proper Use of Assistive Devices Free from Complications of Immobility Progression Toward Outcome/Goals Progressing Bed Mobility Yes: independent Transfers Yes: independent with rolling walker Gait x ft Yes: independent with rolling walker 150' Up/Down Stairs Yes: independnet up/ down 12 stairs with 2 rails. Safety- Improve/Maintain Start: 06/16/17 17:37 Freq: DAILY Status: Active Target: Protocol: Activity Type Activity Date Activity User E-Sign Co-Sign Detail Recorded Client Recorded Date Recorded By Document 06/22/17 01:01 [id number] 06/22/17 01:04 [id number] 06/22/17 01:01 PMRU Outcome: Safety Outcome/Goals Remain Free of Injury or Harm Cooperates with Safety Measures for Least Restrictive Environment Progression Toward Outcome/Goals Progressing Medicine Note: Length of Stay: 3 days Anticipated Discharge Destination: Home Tentative Discharge Date: 06/25/17 Discharged to: home
[2017-06-22] MEDS: MOMETASONE 0.1% TOPICAL SCH (15:09)
[2017-06-22] MEDS: Clobetasol 0.05% OINT* 30 GM TUBE TOPICAL SCH ×2 (15:09→21:07)
--- NOTE | 2017-06-22 16:24 | PN ---
Progress Note Date of Service: 06/22/17 Note: DERIK LANZA was visited. Therapy notes read and reviewed. She was discussed in interdisciplinary team rounds. She has improved a great deal over the past few days. Will move up her discharge date. Current Medications: Active Medications Generic Name Dose Route Start Last Admin Trade Name Freq PRN Reason Stop Dose Admin Acetaminophen 650 mg 06/16/17 13:05 06/21/17 21:01 Tylenol Tab* PO 650 mg Q6H PRN Administration FEVER/PAIN Amlodipine Besylate 10 mg 06/21/17 09:00 06/22/17 08:24 Norvasc Tab* PO 10 mg DAILY AMBELRY Administration Aspirin 81 mg 06/17/17 09:00 06/22/17 08:24 Aspirin Ec Low Dose* PO 81 mg DAILY AMBERLY Administration Atorvastatin Calcium 80 mg 06/16/17 17:00 06/21/17 17:00 Lipitor* PO 80 mg 1700 AMBERLY Administration Clobetasol Propionate 1 applic 06/16/17 21:00 06/22/17 15:09 Clobetasol 0.05% Oint* TOPICAL Not Given BID AMBERLY Docusate Sodium 100 mg 06/19/17 10:20 Colace Cap* PO BID PRN CONSTIPATION Heparin Sodium (Porcine) 5,000 units 06/16/17 14:00 06/22/17 14:36 Heparin Vial(*) SUBCUT 5,000 units Q8HR AMBERLY Administration Hydralazine HCl 10 mg 06/16/17 19:47 Apresoline Tab* PO Q6H PRN SYSTOLIC BP GREATER THAN: Loperamide HCl 2 mg 06/20/17 11:16 Imodium Cap* PO DAILY PRN DIARRHEA Magnesium Hydroxide 30 ml 06/16/17 13:05 Milk Of Magnesia Liq* PO Q6H PRN CONSTIPATION Pto: Mometasone 0.1% 1 each 06/20/17 09:00 06/22/17 15:09 Topical Cream TOPICAL Not Given DAILY AMBERLY Senna 2 tab 06/16/17 13:05 Senokot Tab* PO BEDTIME PRN CONSTIPATION Vital Signs: Vital Signs Temp Pulse Resp BP Pulse Ox 98.0 F 64 16 145/67 98 06/22/17 05:02 06/22/17 05:02 06/22/17 08:00 06/22/17 05:02 06/22/17 08:00 Exam: LUNGS: Clear bilaterally HEART: regular rate and rhythm ABDOMEN: Soft, +BS, non-tender, non-distended. NEUROLOGIC: Left hand caddie 4/5, left leg 4/5 in most muscles. Sensation is intact. EXT: no edema. Assessment/Plan: 1. Right CVA with left hemiparesis: Lipitor/ASA. PT/OT 2. Hypertension: Norvasc increased to 10mg qday starting 06/20/17. 3. DVT prophylaxis: Heparin S/Q 4. Discoid Lupus: Clobetasol. Mometasone - she can use her own. 5. Advanced directives: full code 6. Diarrhea: Continue to monitor. Maybe changing the timing of atorvastatin would help. 7. Advanced directives: Full code. She does not have a HCP. 06/22/17 16:25
[2017-06-22] MEDS: Atorvastatin* 80 MG TAB PO SCH (16:41)
[2017-06-22] MEDS: Acetaminophen TAB* 325 MG PO PRN (21:11)
[2017-06-23] MEDS: Heparin VIAL(*) 5000 UNITS/ML VIAL (FIVE THOUSAND) SUBCUT SCH ×3 (05:37→21:43)
[2017-06-23] MEDS: Aspirin EC Low Dose* 81 MG TAB.EC PO SCH (07:20)
[2017-06-23] MEDS: Clobetasol 0.05% OINT* 30 GM TUBE TOPICAL SCH ×2 (07:21→21:44)
[2017-06-23] MEDS: amLODIPine TAB* 5 MG PO SCH (07:21)
[2017-06-23] MEDS: MOMETASONE 0.1% TOPICAL SCH (07:22)
[2017-06-23] MEDS: Atorvastatin* 80 MG TAB PO SCH (17:16)
[2017-06-23] MEDS: Acetaminophen TAB* 325 MG PO PRN (22:00)
--- NOTE | 2017-06-23 22:32 | PN ---
Progress Note Date of Service: 06/23/17 Note: DERIK LANZA was visited. Therapy notes read and reviewed. She is moving better but still slightly impaired. Excited to go home at end of week. Current Medications: Active Medications Generic Name Dose Route Start Last Admin Trade Name Freq PRN Reason Stop Dose Admin Acetaminophen 650 mg 06/16/17 13:05 06/23/17 22:00 Tylenol Tab* PO 650 mg Q6H PRN Administration FEVER/PAIN Amlodipine Besylate 10 mg 06/21/17 09:00 06/23/17 07:21 Norvasc Tab* PO 10 mg DAILY AMBERLY Administration Aspirin 81 mg 06/17/17 09:00 06/23/17 07:20 Aspirin Ec Low Dose* PO 81 mg DAILY AMBERLY Administration Atorvastatin Calcium 80 mg 06/16/17 17:00 06/23/17 17:16 Lipitor* PO 80 mg 1700 AMBERLY Administration Clobetasol Propionate 1 applic 06/16/17 21:00 06/23/17 21:44 Clobetasol 0.05% Oint* TOPICAL Not Given BID AMBERLY Docusate Sodium 100 mg 06/19/17 10:20 Colace Cap* PO BID PRN CONSTIPATION Heparin Sodium (Porcine) 5,000 units 06/16/17 14:00 06/23/17 21:43 Heparin Vial(*) SUBCUT 5,000 units Q8HR AMBERLY Administration Hydralazine HCl 10 mg 06/16/17 19:47 Apresoline Tab* PO Q6H PRN SYSTOLIC BP GREATER THAN: Loperamide HCl 2 mg 06/20/17 11:16 Imodium Cap* PO DAILY PRN DIARRHEA Magnesium Hydroxide 30 ml 06/16/17 13:05 Milk Of Magnesia Liq* PO Q6H PRN CONSTIPATION Pto: Mometasone 0.1% 1 each 06/20/17 09:00 06/23/17 07:22 Topical Cream TOPICAL Not Given DAILY AMBERLY Senna 2 tab 06/16/17 13:05 Senokot Tab* PO BEDTIME PRN CONSTIPATION Vital Signs: Vital Signs Temp Pulse Resp BP Pulse Ox 98.2 F 73 18 147/78 99 06/23/17 16:11 06/23/17 16:11 06/23/17 19:58 06/23/17 16:11 06/23/17 20:00 Exam: LUNGS: Clear bilaterally HEART: regular rate and rhythm ABDOMEN: Soft, +BS, non-tender, non-distended. EXTREMITIES: no edema. NEUROLOGIC: Left hand park interpreter 4/5, left leg 4/5 in most muscles. Sensation is intact. Assessment/Plan: 1. Right CVA with left hemiparesis: Lipitor/ASA. PT/OT 2. Hypertension: Norvasc increased to 10mg qday starting 06/20/17. 3. DVT prophylaxis: Heparin S/Q 4. Discoid Lupus: Clobetasol. Mometasone - she can use her own. 5. Advanced directives: full code 6. Diarrhea: Seems to be improving. Continue to monitor. Maybe changing the timing of atorvastatin would help. 7. Advanced directives: Full code. She does not have a HCP. 06/23/17 22:33
[2017-06-24] MEDS: Heparin VIAL(*) 5000 UNITS/ML VIAL (FIVE THOUSAND) SUBCUT SCH ×3 (05:56→20:45)
[2017-06-24] MEDS: amLODIPine TAB* 5 MG PO SCH (07:54)
[2017-06-24] MEDS: Aspirin EC Low Dose* 81 MG TAB.EC PO SCH (07:54)
[2017-06-24] MEDS: Clobetasol 0.05% OINT* 30 GM TUBE TOPICAL SCH ×2 (07:55→20:45)
[2017-06-24] MEDS: MOMETASONE 0.1% TOPICAL SCH (07:55)
--- NOTE | 2017-06-24 16:36 | PN ---
Progress Note Date of Service: 06/24/17 Note: DERIK LANZA was visited. Therapy notes read and reviewed. She is ready for discharge in am. She has done well. Current Medications: Active Medications Generic Name Dose Route Start Last Admin Trade Name Freq PRN Reason Stop Dose Admin Acetaminophen 650 mg 06/16/17 13:05 06/23/17 22:00 Tylenol Tab* PO 650 mg Q6H PRN Administration FEVER/PAIN Amlodipine Besylate 10 mg 06/21/17 09:00 06/24/17 07:54 Norvasc Tab* PO 10 mg DAILY AMBERLY Administration Aspirin 81 mg 06/17/17 09:00 06/24/17 07:54 Aspirin Ec Low Dose* PO 81 mg DAILY AMBERLY Administration Atorvastatin Calcium 80 mg 06/16/17 17:00 06/23/17 17:16 Lipitor* PO 80 mg 1700 AMBERLY Administration Clobetasol Propionate 1 applic 06/16/17 21:00 06/24/17 07:55 Clobetasol 0.05% Oint* TOPICAL Not Given BID AMBERLY Docusate Sodium 100 mg 06/19/17 10:20 Colace Cap* PO BID PRN CONSTIPATION Heparin Sodium (Porcine) 5,000 units 06/16/17 14:00 06/24/17 14:21 Heparin Vial(*) SUBCUT 5,000 units Q8HR AMBERLY Administration Hydralazine HCl 10 mg 06/16/17 19:47 Apresoline Tab* PO Q6H PRN SYSTOLIC BP GREATER THAN: Loperamide HCl 2 mg 06/20/17 11:16 Imodium Cap* PO DAILY PRN DIARRHEA Magnesium Hydroxide 30 ml 06/16/17 13:05 Milk Of Magnesia Liq* PO Q6H PRN CONSTIPATION Pto: Mometasone 0.1% 1 each 06/20/17 09:00 06/24/17 07:55 Topical Cream TOPICAL 1 each DAILY AMBERLY Administration Senna 2 tab 06/16/17 13:05 Senokot Tab* PO BEDTIME PRN CONSTIPATION Vital Signs: Vital Signs Temp Pulse Resp BP Pulse Ox 99.0 F 75 16 135/86 100 06/24/17 15:36 06/24/17 15:36 06/24/17 15:36 06/24/17 15:36 06/24/17 15:36 Exam: LUNGS: Clear bilaterally HEART: regular rate and rhythm ABDOMEN: Soft, +BS, non-tender, non-distended. EXTREMITIES: no edema. NEUROLOGIC: Left hand entry level finance 4/5, left leg 4/5 in most muscles. Sensation is intact. Assessment/Plan: 1. Right CVA with left hemiparesis: Lipitor/ASA. PT/OT 2. Hypertension: Norvasc increased to 10mg qday starting 06/20/17. 3. DVT prophylaxis: Heparin S/Q 4. Discoid Lupus: Clobetasol. Mometasone - she can use her own. 5. Advanced directives: full code 6. Diarrhea: Seems to be improving. 7. Advanced directives: Full code. She does not have a HCP. 06/24/17 16:36
[2017-06-24] MEDS: Atorvastatin* 80 MG TAB PO SCH (17:06)
[2017-06-24] MEDS: Acetaminophen TAB* 325 MG PO PRN (20:41)
[2017-06-25] MEDS: Heparin VIAL(*) 5000 UNITS/ML VIAL (FIVE THOUSAND) SUBCUT SCH (05:20)
[2017-06-25 05:37] LABS: ABS Basophils 0 10^3/ul (0-0.2); ABS Eosinophils 0.2 10^3/ul (0-0.6); ABS Lymphocytes 2.1 10^3/ul (1.0-4.8); ABS Monocytes 0.8 10^3/ul (0-0.8); ABS Neutrophils 3.9 10^3/ul (1.5-7.7); ABS Nucleated RBC 0 10^3/ul; Eosinophil % 2.2 % (0-6); Hematocrit 39 % (35-47); Hemoglobin 13.2 g/dl (12.0-16.0); Lymphocyte % 30.1 % (25-47); Mean Corpuscular HGB Conc 34 g/dl (31-36); Mean Corpuscular Hemoglobin 32 pg (27-31); Mean Corpuscular Volume 92 fL (80-97); Mean Platelet Volume 10 um3 (7.4-10.4); Nucleated Red Blood Cells % 0; Platelet Count 175 10^3/ul (150-450); Red Cell Distribution Width 13 % (10.5-15)
[2017-06-25 05:39] VITALS: BP 145/56
[2017-06-25 05:49] LABS: EGFR Non-African American 83.5 (>60)
[2017-06-25] MEDS: Clobetasol 0.05% OINT* 30 GM TUBE TOPICAL SCH (08:14)
[2017-06-25] MEDS: amLODIPine TAB* 5 MG PO SCH (08:17)
[2017-06-25] MEDS: Aspirin EC Low Dose* 81 MG TAB.EC PO SCH (08:17)
[2017-06-25] MEDS: MOMETASONE 0.1% TOPICAL SCH (08:18)
--- NOTE | 2017-06-25 21:59 | DS ---
CC: BEBO Chavez, [facility] * DISCHARGE SUMMARY: DATE OF ADMISSION: 06/16/17 DATE OF DISCHARGE: 06/25/17 DISCHARGE DIAGNOSES: 1. Cerebrovascular accident with left hemiparesis. 2. Hypertension. 3. Discoid lupus. 4. Hyperlipidemia. HISTORY OF ILLNESS AND HOSPITAL COURSE: For complete history of the events leading up to her rehab stay, please see the history and physical dictated by me on 06/16/17. While on the rehab unit, the patient was largely medically stable. She did have some loose stools upon first arriving to the rehab unit. This improved as her rehab stay went on. The patient otherwise remained medically stable. Her blood pressure was in good control. The patient was seen by both Physical and Occupational Therapy and made good gains with both disciplines. With physical therapy at the time of admission, the patient required min assist to do a transfer. She was mod assist to ambulate about 15 feet. With occupational therapy at the time of admission, the patient required min assist for upper body dressing, mod assist for lower body dressing, mod assist for toileting, min assist for toilet transfers. By the time of discharge , the patient was independent in toilet transfers, independent toileting, independent upper and lower body dressing, independent transfers, independent ambulating 150 feet. The patient was discharged home on 06/25/17. DISCHARGE DIET: Regular. DISCHARGE MEDICATIONS: Included: 1. Aspirin 81 mg daily. 2. Lipitor 80 mg daily. 3. Norvasc 10 mg orally daily. 4. She is also on clobetasol topically twice daily. SERVICES AFTER DISCHARGE: Through visiting nurse service, she will have home nursing and home physical therapy. Follow up with Dr. Amie Seals in 8 weeks. She will also follow up with her primary care provider, BEBO Chavez, at [facility] [id number] #: [id number] [facility]PITALMarcio
== END 2017-06-25 11:00 | disposition home or self-care (01) | DRG 57 ==
LOC: PMRU 11:57
PROVIDERS: ADMIT Physical Medicine & Rehabilitation; ATTEND Physical Medicine & Rehabilitation
PROC: F07Z5ZZ Bed Mobility Treatment (ICD-10-PCS; principal; 2017-06-16)
PROC: F07Z9ZZ Gait Training/Functional Ambulation Treatment (ICD-10-PCS; 2017-06-16)
PROC: F07Z8ZZ Transfer Training Treatment (ICD-10-PCS; 2017-06-16)
PROC: F08Z0ZZ Bathing/Showering Techniques Treatment (ICD-10-PCS; 2017-06-16)
PROC: F08Z1ZZ Dressing Techniques Treatment (ICD-10-PCS; 2017-06-16)
PROC: F08Z3ZZ Feeding/Eating Treatment (ICD-10-PCS; 2017-06-16)
DX: I69.354 Hemiplegia and hemiparesis following cerebral infarction affecting left non-dominant side (principal); E78.5 Hyperlipidemia, unspecified; I10 Essential (primary) hypertension; F17.210 Nicotine dependence, cigarettes, uncomplicated; L93.0 Discoid lupus erythematosus; Z79.82 Long term (current) use of aspirin; Z79.899 Other long term (current) drug therapy; R19.7 Diarrhea, unspecified
CPT/HCPCS: 36415; 80053; 85025; A9270-GY; J1644

== ENCOUNTER 2019-04-25 16:19 | Emergency (ER) | payer MEDICARE, BC ==
[2019-04-25 16:44] VITALS: BP 00/00
[2019-04-25] MEDS ORDERED: Lidocaine 1% MPF ** 5 ML VIAL INJ ONE (17:41)
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
== END 2019-04-25 18:50 | disposition home or self-care (01) ==
LOC: UCEAST 16:19
DX: S01.01XA Laceration without foreign body of scalp, initial encounter (principal); I10 Essential (primary) hypertension; Z79.899 Other long term (current) drug therapy; Z87.891 Personal history of nicotine dependence; W22.8XXA Striking against or struck by other objects, initial encounter; Y92.9 Unspecified place or not applicable
CPT/HCPCS: 12002; 99212; G0463

== ENCOUNTER 2019-05-03 10:06 | Emergency (ER) | payer MEDICARE, BC ==
--- NOTE | 2019-05-03 10:27 | UC ---
Head Injury HPI - HPI Summary HPI Summary: 68 yo female presents for staple removal. She tells me that she had 6 arturo placed on 04/25 due to a head injury and scalp laceration. Has been healing well with little discomfort. No headache, dizziness, fevers, or drainage - History Of Current Complaint Chief Complaint: UCLaceration Stated Complaint: STAPLE REMOVAL Time Seen by Provider: 05/03/19 10:21 Hx Obtained From: Patient Onset/Duration: Sudden Onset Severity Currently: None Severity Initially: Moderate Pain Intensity: 6 Pain Scale Used: 0-10 Numeric - Allergies/Home Medications Allergies/Adverse Reactions: Allergies Allergy/AdvReac Type Severity Reaction Status Date / Time No Known Allergies Allergy Verified 05/03/19 10:18 PMH/Surg Hx/FS Hx/Imm Hx - Additional Past Medical History Additional PMH: CVA Lupus Cardiovascular History: Hypertension - Surgical History Surgical History: Yes Surgery Procedure, Year, and Place: LT FOOT SURGERY. TUBAL - Family History Known Family History: Positive: Non-Contributory - Social History Lives: With Family Alcohol Use: Rare Substance Use Type: None Smoking Status (MU): Former Smoker - Immunization History Most Recent Influenza Vaccination: 01/28/17 Most Recent Pneumonia Vaccination: 01/28/17 Review of Systems All Other Systems Reviewed And Are Negative: No Constitutional: Positive: Negative Skin: Positive: Other - Scalp laceration Respiratory: Positive: Negative Cardiovascular: Positive: Negative Neurovascular: Positive: Negative Neurological: Positive: Negative Psychological: Positive: Negative Physical Exam - Summary Physical Exam Summary: GENERAL: NAD. WDWN. No pain distress. SKIN: Gregory shaped scalp laceration with 6 arturo in placed. Well healed with scab present. NTTP. No drainage or erythema. CHEST: No accessory muscle use. Breathing comfortably and in no distress. CV: Pulses intact. Cap refill <2seconds NEURO: Alert. PSYCH: Age appropriate behavior. Triage Information Reviewed: Yes Vital Signs: Initial Vital Signs Temp 98.3 F 05/03/19 10:16 Pulse 82 05/03/19 10:16 Resp 18 05/03/19 10:16 BP 00/00 05/03/19 10:16 Pulse Ox 100 05/03/19 10:16 Vital Signs Reviewed: Yes Head Injury Course/Dx - Course Course Of Treatment: 6 arturo removed without difficulty. Discussed high BP today and pt has not had any headache, dizziness, weakness, SOB, chest pain, n/v. She states that her BP is also elevated in the morning, but lowers throughout the day "it has always been that way". Declined to be evaluated or further treated for this today. - Differential Dx/Diagnosis Provider Diagnosis: Removal of staple, HTN (hypertension) Discharge ED - Sign-Out/Discharge Documenting (check all that apply): Patient Departure All imaging exams completed and their final reports reviewed: No Studies - Discharge Plan Condition: Stable Disposition: HOME Patient Education Materials: Stitches Removal (ED) Referrals: No Primary Care Phys,NOPCP [Primary Care Provider] - Additional Instructions: If you develop a fever, shortness of breath, chest pain, new or worsening symptoms - please call your PCP or go to the ED immediately. Your blood pressure was high at todays visit. Please see your primary provider within 4 weeks for recheck and re-evaluation. - Billing Disposition and Condition Condition: STABLE Disposition: Home - Attestation Statements Provider Attestation: This patient was not seen by me. I was available for consult. Chart reviewed. DAVIS
[2019-05-03 10:34] VITALS: BP 172/102
== END 2019-05-03 10:44 | disposition home or self-care (01) ==
LOC: UCEAST 10:06
DX: Z48.02 Encounter for removal of sutures (principal); I10 Essential (primary) hypertension; Z87.891 Personal history of nicotine dependence

== ENCOUNTER 2020-12-03 07:20 | Observation (INO) ==
[~2020-12-03 07:20] MED LIST: DiMENhydriNATE IV 50 mg/ml 1 ml VIAL IV PUSH ONE; HYDROcodone/ACETAMIN 5/325 mg TAB PO PRN; Lactated Ringers 1000 ml BAG 1,000 ML IV SCH; Metoclopramide 5 MG/ML VIAL (10 mg) IV PRN; Naloxone 0.4 mg VIAL 0.4 mg/ml 1 ml VIAL IV PRN; Ondansetron 4 mg VIAL 2 MG/ML 2 ml VIAL IV PRN; fentaNYL 100 mcg/2 ml 50 MCG/ML VIAL IV PRN
[2020-12-03] MEDS ORDERED: Midazolam 2 mg/2 ml VIAL 1 mg/ml 2 ml VIAL (2 mg) ONE (07:29)
[2020-12-03] MEDS ORDERED: ceFAZolin 2 GM in NS PREMIX 2 GM/100 ML BAG IVPB ONE (07:43)
[2020-12-03] MEDS ORDERED: DiMENhydriNATE IV 50 mg/ml 1 ml VIAL ONE (07:43)
[2020-12-03] MEDS: Buffered Lidocaine 1% SYRIN 1 ml INTRADERM ONE ×2 (08:09→08:22)
[2020-12-03] MEDS ORDERED: Buffered Lidocaine 1% SYRIN 1 ml INTRADERM ONE (08:16)
[2020-12-03] MEDS ORDERED: Dexamethasone IV 4 MG/ML VIAL 1 ml VIAL ONE ×2 (08:21→08:48)
[2020-12-03] MEDS ORDERED: fentaNYL 100 mcg/2 ml 50 MCG/ML VIAL ONE ×3 (08:21→13:14)
[2020-12-03] MEDS ORDERED: Bupivacaine 0.5% SDV PF 30ML VIAL ONE (08:22)
[2020-12-03] MEDS ORDERED: Ondansetron 4 mg VIAL 2 MG/ML 2 ml VIAL ONE (08:48)
[2020-12-03] MEDS ORDERED: Lidocaine 2% PF 5 ML VIAL ONE ×2 (08:48→09:49)
[2020-12-03] MEDS ORDERED: ROPIVACAINE 5 MG/ML 30 ML BTL (0.5%) ONE (09:23)
[2020-12-03] MEDS ORDERED: Ondansetron ODT 4 mg TAB 4 MG TAB PO PRN (11:06)
[2020-12-03] MEDS ORDERED: Lactulose 30 ml UDC PO PRN (11:06)
[2020-12-03] MEDS ORDERED: Magnesium Hydroxide LIQ 30 ML UDC PO PRN (11:06)
[2020-12-03] MEDS ORDERED: diPHENhydraMINE IV 50 MG/ML 1 ml VIAL (BENADRYL) IV PRN (11:06)
[2020-12-03] MEDS ORDERED: diPHENhydraMINE 25 mg TAB PO PRN (11:06)
[2020-12-03] MEDS ORDERED: Morphine 2 MG/ML SYRINGE IV PRN (11:06)
[2020-12-03] MEDS ORDERED: Ondansetron 4 mg VIAL 2 MG/ML 2 ml VIAL IV PRN (11:06)
[2020-12-03] MEDS ORDERED: Lactated Ringers 1000 ml BAG 1,000 ML IV SCH (12:00)
[2020-12-03] MEDS ORDERED: Labetalol IV 5 MG/ML 20 ml VIAL ONE (13:23)
[2020-12-03] MEDS ORDERED: Labetalol IV 5 MG/ML 20 ml VIAL IV PUSH ONE (13:27)
[2020-12-03] MEDS: ceFAZolin 1 GM ADVAN 1 GM in NS 0.9% 50 ML 50 ML IVPB SCH (17:58)
[2020-12-03] MEDS: Magnesium Hydroxide LIQ 30 ML UDC PO SCH (20:59)
[2020-12-04] MEDS: ceFAZolin 1 GM ADVAN 1 GM in NS 0.9% 50 ML 50 ML IVPB SCH ×2 (01:33→08:57)
[2020-12-04 07:25] LABS: Hematocrit 30 % (35-47); Hemoglobin 10.4 g/dL (12.0-16.0); Mean Platelet Volume 8.7 fL (7.4-10.4); Platelet Count 141 10^3/uL (150-450)
[2020-12-04 07:41] LABS: Calcium 8.6 mg/dL (8.6-10.3); EGFR African American 92.4 (>60); EGFR Non-African American 76.4 (>60); Potassium 3.8 mmol/L (3.5-5.0)
[2020-12-04] MEDS ORDERED: Vitamin THERAPEUTIC TAB PO SCH (09:00)
[2020-12-04] MEDS: Magnesium Hydroxide LIQ 30 ML UDC PO SCH (09:07)
[2020-12-04 11:08] VITALS: BP 138/82
== END 2020-12-04 14:00 | disposition home or self-care (01) ==
LOC: SSU 07:20 → OR 07:20
PROVIDERS: ADMIT Orthopaedic Surgery Adult Reconstructive Orthopaedic Surgery; ATTEND Orthopaedic Surgery Adult Reconstructive Orthopaedic Surgery

== ENCOUNTER 2021-09-03 07:53 | Inpatient (IN) ==
[2021-09-03 09:40] LABS: ABS Monocytes 0.4 10^3/ul (0-0.8); ABS Neutrophils 4.2 10^3/ul (1.5-7.7); Hematocrit 34 % (35-47); Hemoglobin 11.1 g/dL (12.0-16.0); Lymphocyte % 18.2 %; Mean Corpuscular HGB Conc 33 g/dL (31-36); Mean Corpuscular Hemoglobin 28 pg (27-31); Mean Corpuscular Volume 86 fL (80-97); Mean Platelet Volume 10.5 fL (7.4-10.4); Nucleated Red Blood Cells % 0.1; Platelet Count 164 10^3/uL (150-450); Red Blood Count 3.96 10^6 /uL (3.70-4.87); Red Cell Distribution Width 15 % (10-15); White Blood Count 5.7 10^3/uL (3.5-10.8)
[2021-09-03 10:37] LABS: Albumin 3.4 g/dL (3.2-5.2); Albumin/Globulin Ratio 1.2 (1-3); Calcium 9.2 mg/dL (8.6-10.3); Globulin 2.8 g/dL (2-4); Magnesium 1.4 mg/dL (1.9-2.7); Potassium 3.9 mmol/L (3.5-5.0); Total Protein 6.2 g/dL (6.4-8.9); eGFR CKD-EPI 81.2 (>60)
[2021-09-03] MEDS ORDERED: Magnesium Sulfate 2 gm BAG 2 GM/50 ML BAG IVPB ONE ×2 (10:40→17:54)
[2021-09-03 11:18] LABS: High Sensitivity Troponin 1 Hr 36 pg/mL (<15)
[2021-09-03] MEDS ORDERED: Furosemide 40 mg/4 ml IV VIAL IV ONE (17:49)
[2021-09-03] MEDS ORDERED: Enoxaparin 40 MG/0.4 ML SYR SUBCUT SCH (20:00)
[2021-09-03 20:47] LABS: C Reactive Protein 2.42 mg/L (<8.01); Creatine Kinase 510 U/L (10-223); Rheumatoid Factor < 10 IU/mL (<15)
[2021-09-04 05:43] LABS: ABS Lymphocytes 1.4 10^3/ul (1.0-4.8); ABS Monocytes 0.6 10^3/ul (0-0.8); Hematocrit 37 % (35-47); Lymphocyte % 19.9 %; Mean Corpuscular HGB Conc 33 g/dL (31-36); Mean Corpuscular Hemoglobin 28 pg (27-31); Mean Corpuscular Volume 86 fL (80-97); Mean Platelet Volume 10.4 fL (7.4-10.4); Nucleated Red Blood Cells % 0.2; Platelet Count 174 10^3/uL (150-450); Red Blood Count 4.27 10^6 /uL (3.70-4.87); Red Cell Distribution Width 15 % (10-15); White Blood Count 6.9 10^3/uL (3.5-10.8)
[2021-09-04 06:34] LABS: Albumin 3.5 g/dL (3.2-5.2); Albumin/Globulin Ratio 1.3 (1-3); Calcium 9.5 mg/dL (8.6-10.3); Globulin 2.8 g/dL (2-4); HDL Cholesterol 28.7 mg/dL; Magnesium 1.9 mg/dL (1.9-2.7); Potassium 4.3 mmol/L (3.5-5.0); Total Bilirubin 0.9 mg/dL (0.2-1.0); Total Protein 6.3 g/dL (6.4-8.9); eGFR CKD-EPI 67.4 (>60)
[2021-09-04] MEDS: Aspirin EC 81 mg TAB.EC (enteric coated) PO SCH (09:49)
[2021-09-05 06:30] LABS: Hematocrit 34 % (35-47); Mean Corpuscular HGB Conc 32 g/dL (31-36); Mean Corpuscular Hemoglobin 28 pg (27-31); Mean Corpuscular Volume 86 fL (80-97); Mean Platelet Volume 10.4 fL (7.4-10.4); Platelet Count 178 10^3/uL (150-450); Red Blood Count 3.98 10^6 /uL (3.70-4.87); Red Cell Distribution Width 15 % (10-15); White Blood Count 7.1 10^3/uL (3.5-10.8)
[2021-09-05 06:42] LABS: Activated Partial Thrombo Time 28.5 seconds (26.0-38.0); INR 1.32 (0.86-1.15)
[2021-09-05 07:07] LABS: Calcium 8.7 mg/dL (8.6-10.3); Potassium 3.9 mmol/L (3.5-5.0); eGFR CKD-EPI 78.7 (>60)
[2021-09-05] MEDS: Aspirin EC 81 mg TAB.EC (enteric coated) PO SCH (07:50)
[2021-09-05] MEDS ORDERED: Heparin 1,000 UNIT/ML 10 ml (10,000 UNITS) CATHLAB/DIALYSIS ONE (08:29)
[2021-09-05] MEDS ORDERED: Midazolam 5 mg/5 ml VIAL 1 mg/ml 5 ml VIAL (5 mg) ONE (08:29)
[2021-09-05] MEDS ORDERED: fentaNYL 100 mcg/2 ml 50 MCG/ML VIAL ONE (08:29)
[2021-09-05] MEDS ORDERED: Heparin 2 UNITS/ML 1000 mls 2,000 ML IV ONE (08:30)
[2021-09-05] MEDS ORDERED: nitroGLYCERIN DRIP 25,000 MCG/250 ML BTL ONE (08:30)
[2021-09-05] MEDS ORDERED: Lidocaine 1% MPF 5 ML VIAL ONE (08:30)
[2021-09-05] MEDS ORDERED: niCARdipine 0.1MG/ML IVPREMIX 20 MG/200 ML BAG IV ONE (08:30)
[2021-09-05] MEDS ORDERED: Iohexol 350 (CONTRAST) 50 ML SDV IV ONE (08:31)
[2021-09-05 09:31] LABS: POC SO2 55 %
[2021-09-05 09:31] LABS: POC SO2 90 %
[2021-09-05 18:30] LABS: Calcium 8.9 mg/dL (8.6-10.3); Magnesium 1.5 mg/dL (1.9-2.7); Potassium 4.1 mmol/L (3.5-5.0); eGFR CKD-EPI 68.3 (>60)
[2021-09-05] MEDS ORDERED: Magnesium Sulfate 2 gm BAG 2 GM/50 ML BAG IVPB ONE (19:26)
[2021-09-05] MEDS: Enoxaparin 40 MG/0.4 ML SYR SUBCUT SCH (20:03)
[2021-09-06] MEDS: Aspirin EC 81 mg TAB.EC (enteric coated) PO SCH (08:18)
[2021-09-06 09:29] LABS: Hematocrit 33 % (35-47); Hemoglobin 10.7 g/dL (12.0-16.0); Mean Corpuscular HGB Conc 33 g/dL (31-36); Mean Corpuscular Hemoglobin 28 pg (27-31); Mean Corpuscular Volume 85 fL (80-97); Mean Platelet Volume 10.2 fL (7.4-10.4); Platelet Count 179 10^3/uL (150-450); Red Blood Count 3.89 10^6 /uL (3.70-4.87); Red Cell Distribution Width 15 % (10-15); White Blood Count 6.4 10^3/uL (3.5-10.8)
[2021-09-06 09:54] LABS: Calcium 8.7 mg/dL (8.6-10.3); Magnesium 1.8 mg/dL (1.9-2.7); Potassium 3.6 mmol/L (3.5-5.0); eGFR CKD-EPI 70.2 (>60)
[2021-09-06] MEDS ORDERED: Magnesium Sulfate 2 gm BAG 2 GM/50 ML BAG IVPB ONE (11:05)
[2021-09-06] MEDS ORDERED: Potassium Chlor 20 meq TAB.ER PO ONE (11:06)
[2021-09-06] MEDS: Enoxaparin 40 MG/0.4 ML SYR SUBCUT SCH (21:11)
[2021-09-07 08:05] LABS: Magnesium 1.9 mg/dL (1.9-2.7); Potassium 4.3 mmol/L (3.5-5.0); eGFR CKD-EPI 61.7 (>60)
[2021-09-07] MEDS: Aspirin EC 81 mg TAB.EC (enteric coated) PO SCH (09:12)
[2021-09-07 09:54] LABS: Calcium 8.6 mg/dL (8.6-10.3)
[2021-09-07 12:27] VITALS: BP 126/79
== END 2021-09-07 16:00 | disposition home or self-care (01) | DRG 286 ==
LOC: ED 07:53 → EDHOLD 15:39 → MEDTELE 17:42
PROVIDERS: ADMIT Internal Medicine; ATTEND Internal Medicine

== ENCOUNTER 2022-05-29 09:57 | Observation (INO) ==
[~2022-05-29 09:57] MED LIST changes: +Buffered Lidocaine 1% SYRIN 1 ml INTRADERM ONE; -DiMENhydriNATE IV 50 mg/ml 1 ml VIAL IV PUSH ONE; -HYDROcodone/ACETAMIN 5/325 mg TAB PO PRN; -Metoclopramide 5 MG/ML VIAL (10 mg) IV PRN; -Naloxone 0.4 mg VIAL 0.4 mg/ml 1 ml VIAL IV PRN; -Ondansetron 4 mg VIAL 2 MG/ML 2 ml VIAL IV PRN; -fentaNYL 100 mcg/2 ml 50 MCG/ML VIAL IV PRN
[2022-05-29] MEDS ORDERED: ceFAZolin 2 GM in NS PREMIX 2 GM/100 ML BAG IVPB ONE (10:44)
[2022-05-29] MEDS ORDERED: Dexamethasone IV 4 MG/ML VIAL 1 ml VIAL ONE (10:45)
[2022-05-29] MEDS ORDERED: fentaNYL 100 mcg/2 ml 50 MCG/ML VIAL ONE (10:45)
[2022-05-29] MEDS ORDERED: Ondansetron 4 mg VIAL 2 MG/ML 2 ml VIAL ONE (10:45)
[2022-05-29] MEDS ORDERED: Lidocaine 2% PF 5 ML VIAL ONE (10:45)
[2022-05-29] MEDS ORDERED: Midazolam 2 mg/2 ml VIAL 1 mg/ml 2 ml VIAL (2 mg) ONE (10:46)
[2022-05-29] MEDS ORDERED: Phenylephrine IV 10 MG/ML 1 ml VIAL ONE (11:03)
[2022-05-29] MEDS ORDERED: Bupivacaine 0.5% PF 10 ML SDV VIAL INJ ONE (11:03)
[2022-05-29] MEDS ORDERED: ROPIVACAINE 5 MG/ML 30 ML BTL (0.5%) ONE (11:56)
[2022-05-29] MEDS ORDERED: Acetaminophen IV 1 GM/100ML 1,000 MG/100 ML BAG IV ONE (13:43)
[2022-05-29] MEDS ORDERED: Lactulose 30 ml UDC PO PRN (13:43)
[2022-05-29] MEDS ORDERED: Ondansetron 4 mg VIAL 2 MG/ML 2 ml VIAL IV PRN (13:43)
[2022-05-29] MEDS ORDERED: Ondansetron ODT 4 mg TAB 4 MG TAB PO PRN (13:43)
[2022-05-29] MEDS ORDERED: Morphine 2 MG/ML SYRINGE IV PRN (13:43)
[2022-05-29] MEDS ORDERED: Magnesium Hydroxide LIQ 30 ML UDC PO PRN (13:43)
[2022-05-29] MEDS ORDERED: Ketamine HCL 50 mg/ml 10 ml VIAL (500 MG) ONE (14:35)
[2022-05-29] MEDS: Lactated Ringers 1000 ml BAG 1,000 ML IV SCH (17:10)
[2022-05-29] MEDS: Magnesium Hydroxide LIQ 30 ML UDC PO SCH (21:47)
[2022-05-29] MEDS: ceFAZolin 1 GM ADVAN 1 GM in NS 0.9% 50 ML 50 ML IVPB SCH (21:53)
[2022-05-30] MEDS: Lactated Ringers 1000 ml BAG 1,000 ML IV SCH (02:48)
[2022-05-30] MEDS: ceFAZolin 1 GM ADVAN 1 GM in NS 0.9% 50 ML 50 ML IVPB SCH ×2 (05:34→12:20)
[2022-05-30 06:14] LABS: Hematocrit 34 % (35-47); Hemoglobin 10.9 g/dL (12.0-16.0); Mean Platelet Volume 8.7 fL (7.4-10.4); Platelet Count 133 10^3/uL (150-450)
[2022-05-30 06:44] LABS: Calcium 9.1 mg/dL (8.6-10.3); Creatinine, Serum 0.88 mg/dL (0.51-0.95); Potassium 4.8 mmol/L (3.5-5.0); eGFR CKD-EPI 69.8 (>60)
[2022-05-30 07:19] VITALS: BP 118/75
[2022-05-30] MEDS: Magnesium Hydroxide LIQ 30 ML UDC PO SCH (08:36)
[2022-05-30] MEDS ORDERED: Vitamin THERAPEUTIC TAB PO SCH (09:00)
== END 2022-05-30 14:00 | disposition home or self-care (01) ==
LOC: SSU 09:57 → OR 09:57
PROVIDERS: ADMIT Orthopaedic Surgery Adult Reconstructive Orthopaedic Surgery; ATTEND Orthopaedic Surgery Adult Reconstructive Orthopaedic Surgery

== ENCOUNTER 2024-03-13 11:16 | Inpatient (IN) ==
[2024-03-13 11:54] LABS: ABS Basophils 0.1 10^3/uL (0.0-0.1); ABS Lymphocytes 0.7 10^3/uL (1.0-4.8); ABS Monocytes 0.7 10^3/uL (0.0-0.9); ABS Neutrophils 8.2 10^3/uL (1.5-7.6); ABS Nucleated RBC 0.05 10^3/ul; Eosinophil % 0.1 %; Hematocrit 37.7 % (35-45); Lymphocyte % 7.4 %; Mean Corpuscular Hemoglobin 28.4 pg (27-33); Mean Corpuscular Hgb Conc 31.9 g/dL (31-36); Nucleated Red Blood Cells % 0.6 %/100WBC (0.0-0.8); Platelet Count 125 10^3/uL (150-450); Red Blood Count 4.24 10^6/uL (3.63-4.92); Red Cell Distribution Width 17.7 % (12-17); White Blood Count 9.8 10^3/uL (3.8-11.8)
[2024-03-13] MEDS: Furosemide 20 mg/2 ml IV VIAL IV SLOW PU ONE ×3 (12:05→19:27)
[2024-03-13 12:15] LABS: Anion Gap 13 mmol/L (2-16); CO2 Carbon Dioxide 30 mmol/L (22-32); Chloride 95 mmol/L (101-111); Sodium 138 mmol/L (135-145)
[2024-03-13 12:16] LABS: ALT 482 U/L (7-52); Albumin 3.3 g/dL (3.2-5.2); Alkaline Phosphatase 95 U/L (35-149); Blood Urea Nitrogen 45 mg/dL (6-24); Creatinine, Serum 2.04 mg/dL (0.51-0.95); Globulin 3.3 g/dL (2-4); Glucose 91 mg/dL (70-100); Total Bilirubin 2.2 mg/dL (0.2-1.0); Total Protein 6.6 g/dL (6.4-8.9); eGFR CKD-EPI 25.3 (>60)
[2024-03-13 12:20] LABS: High Sens Troponin Baseline 60 pg/mL (<15)
[2024-03-13 15:01] LABS: Potassium Redraw 3.6 mmol/L (3.5-5.0)
[2024-03-13 16:02] LABS: ABS Lymphocytes 0.8 10^3/uL (1.0-4.8); ABS Monocytes 0.8 10^3/uL (0.0-0.9); ABS Neutrophils 7.9 10^3/uL (1.5-7.6); ABS Nucleated RBC 0.03 10^3/ul; Eosinophil % 0.1 %; Hematocrit 36.8 % (35-45); Hemoglobin 11.7 g/dL (11.5-14.3); Lymphocyte % 8.6 %; Mean Corpuscular Hemoglobin 28.7 pg (27-33); Mean Corpuscular Hgb Conc 31.8 g/dL (31-36); Mean Corpuscular Volume 90.2 fL (80-97); Mean Platelet Volume 9.8 fL (7.5-11.2); Nucleated Red Blood Cells % 0.3 %/100WBC (0.0-0.8); Platelet Count 120 10^3/uL (150-450); Red Blood Count 4.08 10^6/uL (3.63-4.92); Red Cell Distribution Width 17.8 % (12-17); White Blood Count 9.5 10^3/uL (3.8-11.8)
[2024-03-13] MEDS: Heparin 5000 UNITS/ML 1 mL VIAL IV SCH (16:13)
[2024-03-13] MEDS: Heparin DRIP 25,000 UNITS BAG 25,000 UNITS/250 ML BAG IV SCH (16:15)
[2024-03-13] MEDS ORDERED: Sulfur Hexaflouride MICROSPHR 25 MG VIAL IV PRN (16:16)
[2024-03-13 16:27] LABS: Creatinine, Serum 2.03 mg/dL (0.51-0.95); eGFR CKD-EPI 25.4 (>60)
[2024-03-13 16:47] LABS: Activated Partial Thrombo Time 34.5 seconds (26.0-38.0)
[2024-03-13 19:11] LABS: INR 2.29 (0.85-1.14)
[2024-03-13 20:14] LABS: Urine Appearance Clear; Urine Bilirubin Negative (Negative); Urine Blood Negative (Negative); Urine Color Yellow; Urine Glucose Negative (Negative); Urine Ketones Negative (Negative); Urine Nitrite Negative (Negative); Urine Protein Negative (Negative); Urine Specific Gravity 1.012 (1.002-1.030); Urine Urobilinogen Negative (Negative); Urine pH 5.5 (5.0-8.0)
[2024-03-13 21:01] LABS: Hepatitis B Surface Antigen Nonreactive (Nonreactive)
[2024-03-13 21:06] LABS: Hepatitis A Ab IgM Negative (Negative)
[2024-03-13 21:07] LABS: Hepatitis B Core IgM Nonreactive (Nonreactive)
[2024-03-13 21:18] LABS: Hepatitis C Antibody Negative (Negative)
[2024-03-14 05:53] LABS: ABS Basophils 0.1 10^3/uL (0.0-0.1); ABS Lymphocytes 0.8 10^3/uL (1.0-4.8); ABS Monocytes 0.7 10^3/uL (0.0-0.9); ABS Neutrophils 6.4 10^3/uL (1.5-7.6); ABS Nucleated RBC 0.02 10^3/ul; Eosinophil % 0.2 %; Hematocrit 33.7 % (35-45); Lymphocyte % 9.9 %; Mean Corpuscular Hemoglobin 28.8 pg (27-33); Mean Corpuscular Hgb Conc 32.5 g/dL (31-36); Mean Corpuscular Volume 88.5 fL (80-97); Mean Platelet Volume 9.9 fL (7.5-11.2); Nucleated Red Blood Cells % 0.3 %/100WBC (0.0-0.8); Platelet Count 107 10^3/uL (150-450); Red Blood Count 3.81 10^6/uL (3.63-4.92); Red Cell Distribution Width 17.8 % (12-17)
[2024-03-14 06:20] LABS: Albumin 2.8 g/dL (3.2-5.2); Calcium 9.2 mg/dL (8.6-10.3); Creatinine, Serum 1.83 mg/dL (0.51-0.95); Globulin 2.9 g/dL (2-4); Magnesium 1.8 mg/dL (1.9-2.7); Potassium 3.2 mmol/L (3.5-5.0); Total Bilirubin 1.6 mg/dL (0.2-1.0); Total Protein 5.7 g/dL (6.4-8.9); eGFR CKD-EPI 28.8 (>60)
[2024-03-14] MEDS: Potassium Chlor 20 meq TAB.ER PO SCH (10:01)
[2024-03-14] MEDS: Furosemide 40 mg/4 ml IV VIAL IV SLOW PU ONE (10:06)
[2024-03-14] MEDS: Furosemide 20 mg/2 ml IV VIAL IV SLOW PU ONE (17:18)
[2024-03-15 07:11] LABS: ABS Eosinophils 0.1 10^3/uL (0.0-0.5); ABS Lymphocytes 0.7 10^3/uL (1.0-4.8); ABS Monocytes 0.6 10^3/uL (0.0-0.9); ABS Neutrophils 5.8 10^3/uL (1.5-7.6); ABS Nucleated RBC 0.02 10^3/ul; Eosinophil % 0.8 %; Hematocrit 33.4 % (35-45); Lymphocyte % 10.4 %; Mean Corpuscular Hgb Conc 32.8 g/dL (31-36); Mean Corpuscular Volume 88.5 fL (80-97); Mean Platelet Volume 10.5 fL (7.5-11.2); Nucleated Red Blood Cells % 0.3 %/100WBC (0.0-0.8); Platelet Count 106 10^3/uL (150-450); Red Blood Count 3.78 10^6/uL (3.63-4.92); Red Cell Distribution Width 17.5 % (12-17); White Blood Count 7.2 10^3/uL (3.8-11.8)
[2024-03-15 07:22] LABS: Albumin/Globulin Ratio 0.9 (1-3); Calcium 9.1 mg/dL (8.6-10.3); Creatinine, Serum 1.48 mg/dL (0.51-0.95); Globulin 3.3 g/dL (2-4); Magnesium 1.7 mg/dL (1.9-2.7); Potassium 3.7 mmol/L (3.5-5.0); Total Bilirubin 1.4 mg/dL (0.2-1.0); Total Protein 6.3 g/dL (6.4-8.9); eGFR CKD-EPI 37.2 (>60)
[2024-03-15] MEDS: Magnesium Sulfate 2 gm BAG 2 GM/50 ML BAG IVPB ONE (09:31)
[2024-03-15] MEDS: Potassium Chlor 10 meq TAB PO ONE (09:38)
[2024-03-15] MEDS: Magnesium Sulfate IV 1GM/100ML 1 GM/100 ML BAG IV ONE (10:56)
[2024-03-15] MEDS: Bumetanide IV 0.25 MG/ML 4 ml VIAL (1 mg) IV SLOW PU ONE (11:00)
[2024-03-15] MEDS: Potassium Chloride LIQUID 20 MEQ/15 ML LIQUID PO ONE (12:53)
[2024-03-16 07:15] LABS: Albumin 3.1 g/dL (3.2-5.2); Creatinine, Serum 1.33 mg/dL (0.51-0.95); Globulin 3.2 g/dL (2-4); Potassium 4.1 mmol/L (3.5-5.0); Total Bilirubin 1.4 mg/dL (0.2-1.0); Total Protein 6.3 g/dL (6.4-8.9); eGFR CKD-EPI 42.2 (>60)
[2024-03-16 09:39] LABS: Urine Appearance Turbid; Urine Bilirubin Negative (Negative); Urine Blood 3+ (Negative); Urine Color Yellow; Urine Glucose Negative (Negative); Urine Ketones Negative (Negative); Urine Nitrite Negative (Negative); Urine Protein 1+ (>=30 mg/dL) (Negative); Urine Specific Gravity 1.013 (1.002-1.030); Urine Urobilinogen Negative (Negative); Urine pH 5.5 (5.0-8.0)
[2024-03-16 09:44] LABS: Urine Bacteria 2+ /HPF (Absent); Urine Red Blood Cell 3+(>10/hpf) /HPF (0-Trace); Urine Squamous Epithelial Cell Present /HPF (Absent); Urine White Blood Cell 3+(>20/hpf) /HPF (0-Trace)
[2024-03-16 11:08] LABS: ABS Lymphocytes 0.7 10^3/uL (1.0-4.8); ABS Monocytes 0.5 10^3/uL (0.0-0.9); ABS Neutrophils 5.4 10^3/uL (1.5-7.6); ABS Nucleated RBC 0.02 10^3/ul; Eosinophil % 0.2 %; Hemoglobin 11.6 g/dL (11.5-14.3); Lymphocyte % 10.2 %; Mean Corpuscular Hemoglobin 28.6 pg (27-33); Mean Corpuscular Hgb Conc 32.2 g/dL (31-36); Mean Corpuscular Volume 88.8 fL (80-97); Mean Platelet Volume 10.3 fL (7.5-11.2); Nucleated Red Blood Cells % 0.3 %/100WBC (0.0-0.8); Platelet Count 96 10^3/uL (150-450); RBC Morphology Normal (Normal); Red Blood Count 4.05 10^6/uL (3.63-4.92); Red Cell Distribution Width 17.7 % (12-17); White Blood Count 6.6 10^3/uL (3.8-11.8)
[2024-03-16] MEDS: Bumetanide IV 0.25 MG/ML 4 ml VIAL (1 mg) IV SLOW PU SCH (11:36)
[2024-03-17 07:17] LABS: ABS Eosinophils 0.1 10^3/uL (0.0-0.5); ABS Lymphocytes 0.5 10^3/uL (1.0-4.8); ABS Monocytes 0.4 10^3/uL (0.0-0.9); ABS Neutrophils 5.4 10^3/uL (1.5-7.6); ABS Nucleated RBC 0.01 10^3/ul; Eosinophil % 1.9 %; Hematocrit 34.4 % (35-45); Hemoglobin 11.3 g/dL (11.5-14.3); Lymphocyte % 8.1 %; Mean Corpuscular Hemoglobin 28.9 pg (27-33); Mean Corpuscular Hgb Conc 32.7 g/dL (31-36); Mean Corpuscular Volume 88.2 fL (80-97); Mean Platelet Volume 9.8 fL (7.5-11.2); Nucleated Red Blood Cells % 0.1 %/100WBC (0.0-0.8); Platelet Count 85 10^3/uL (150-450); Red Cell Distribution Width 17.1 % (12-17); White Blood Count 6.6 10^3/uL (3.8-11.8)
[2024-03-17 07:19] LABS: Albumin 2.9 g/dL (3.2-5.2); Calcium 8.8 mg/dL (8.6-10.3); Creatinine, Serum 1.06 mg/dL (0.51-0.95); Magnesium 1.6 mg/dL (1.9-2.7); Potassium 3.5 mmol/L (3.5-5.0); Total Bilirubin 1.4 mg/dL (0.2-1.0); Total Protein 5.9 g/dL (6.4-8.9); eGFR CKD-EPI 55.5 (>60)
[2024-03-17] MEDS: Potassium Chlor 20 meq TAB.ER PO ONE (08:00)
[2024-03-17] MEDS: Magnesium Sulf 4 GM/100 ML IV 4,000 MG/100 ML BAG IVPB ONE (08:00)
[2024-03-17] MEDS: cefTRIAXone 1 gm/50 mL D5W 1 GM/50 ML BAG IV SCH (10:56)
[2024-03-17] MEDS: Bumetanide IV 0.25 MG/ML 4 ml VIAL (1 mg) IV SLOW PU SCH (10:57)
[2024-03-18] MEDS: Petroleum Jelly 1.75 Oz (small jar) TOPICAL ONE (06:58)
[2024-03-18] MEDS: Magnesium Sulf 4 GM/100 ML IV 4,000 MG/100 ML BAG IVPB ONE (06:59)
[2024-03-18 07:17] LABS: ABS Basophils 0.1 10^3/uL (0.0-0.1); ABS Eosinophils 0.1 10^3/uL (0.0-0.5); ABS Lymphocytes 0.6 10^3/uL (1.0-4.8); ABS Monocytes 0.5 10^3/uL (0.0-0.9); ABS Neutrophils 5.4 10^3/uL (1.5-7.6); Hematocrit 34.8 % (35-45); Hemoglobin 11.3 g/dL (11.5-14.3); Lymphocyte % 8.5 %; Mean Corpuscular Hgb Conc 32.6 g/dL (31-36); Mean Platelet Volume 10.3 fL (7.5-11.2); Nucleated Red Blood Cells % 0.1 %/100WBC (0.0-0.8); Platelet Count 106 10^3/uL (150-450); Red Blood Count 3.91 10^6/uL (3.63-4.92); Red Cell Distribution Width 17.4 % (12-17); White Blood Count 6.7 10^3/uL (3.8-11.8)
[2024-03-18 08:02] LABS: ALT 148 U/L (7-52); Albumin 2.9 g/dL (3.2-5.2); Albumin/Globulin Ratio 0.9 (1-3); Alkaline Phosphatase 70 U/L (35-149); Anion Gap 9 mmol/L (2-16); Blood Urea Nitrogen 39 mg/dL (6-24); CO2 Carbon Dioxide 36 mmol/L (22-32); Calcium 8.9 mg/dL (8.6-10.3); Chloride 96 mmol/L (101-111); Creatinine, Serum 1.01 mg/dL (0.51-0.95); Globulin 3.2 g/dL (2-4); Glucose 90 mg/dL (70-100); Magnesium 1.8 mg/dL (1.9-2.7); Sodium 141 mmol/L (135-145); Total Bilirubin 1.3 mg/dL (0.2-1.0); Total Protein 6.1 g/dL (6.4-8.9); eGFR CKD-EPI 58.8 (>60)
[2024-03-18 09:00] LABS: Potassium Redraw 3.6 mmol/L (3.5-5.0)
[2024-03-18] MEDS ORDERED: Senna TAB 8.6 mg TAB PO PRN (10:23)
[2024-03-18] MEDS: Bumetanide IV 0.25 MG/ML 4 ml VIAL (1 mg) IV SLOW PU SCH (11:40)
[2024-03-18] MEDS: Polyethylene Glycol 3350 17 GM PACKET PO PRN (11:55)
[2024-03-18] MEDS: KCL 20 MEQ/100 ML IVPREMIX 20 MEQ/100 ML BAG IV SCH (18:25)
[2024-03-18] MEDS: Magnesium Hydroxide LIQ 30 ML UDC PO SCH (21:15)
[2024-03-19 08:46] LABS: ABS Basophils 0.1 10^3/uL (0.0-0.1); ABS Eosinophils 0.1 10^3/uL (0.0-0.5); ABS Lymphocytes 0.6 10^3/uL (1.0-4.8); ABS Monocytes 0.5 10^3/uL (0.0-0.9); ABS Neutrophils 5.4 10^3/uL (1.5-7.6); Eosinophil % 1.7 %; Hematocrit 34.9 % (35-45); Hemoglobin 11.3 g/dL (11.5-14.3); Lymphocyte % 9.2 %; Mean Corpuscular Hemoglobin 28.8 pg (27-33); Mean Corpuscular Hgb Conc 32.6 g/dL (31-36); Mean Corpuscular Volume 88.4 fL (80-97); Nucleated Red Blood Cells % 0.1 %/100WBC (0.0-0.8); Platelet Count 113 10^3/uL (150-450); Red Blood Count 3.94 10^6/uL (3.63-4.92); Red Cell Distribution Width 17.7 % (12-17); White Blood Count 6.7 10^3/uL (3.8-11.8)
[2024-03-19 09:15] LABS: Creatinine, Serum 0.95 mg/dL (0.51-0.95); eGFR CKD-EPI 63.3 (>60)
[2024-03-20 06:27] LABS: Hematocrit 36.2 % (35-45); Hemoglobin 11.7 g/dL (11.5-14.3); Mean Corpuscular Hemoglobin 28.6 pg (27-33); Mean Corpuscular Hgb Conc 32.3 g/dL (31-36); Mean Corpuscular Volume 88.5 fL (80-97); Mean Platelet Volume 10.1 fL (7.5-11.2); Platelet Count 133 10^3/uL (150-450); Red Blood Count 4.09 10^6/uL (3.63-4.92); Red Cell Distribution Width 17.6 % (12-17); White Blood Count 6.1 10^3/uL (3.8-11.8)
[2024-03-20 07:01] LABS: Calcium 9.2 mg/dL (8.6-10.3); Creatinine, Serum 0.89 mg/dL (0.51-0.95); Magnesium 2.1 mg/dL (1.9-2.7); Potassium 4.4 mmol/L (3.5-5.0); eGFR CKD-EPI 68.4 (>60)
[2024-03-21 06:02] LABS: Hematocrit 37.2 % (35-45); Hemoglobin 12.1 g/dL (11.5-14.3); Mean Corpuscular Hemoglobin 28.6 pg (27-33); Mean Corpuscular Hgb Conc 32.5 g/dL (31-36); Mean Corpuscular Volume 87.9 fL (80-97); Mean Platelet Volume 9.4 fL (7.5-11.2); Platelet Count 145 10^3/uL (150-450); Red Blood Count 4.23 10^6/uL (3.63-4.92); Red Cell Distribution Width 17.1 % (12-17); White Blood Count 9.7 10^3/uL (3.8-11.8)
[2024-03-21 07:06] LABS: Calcium 9.8 mg/dL (8.6-10.3); Creatinine, Serum 0.99 mg/dL (0.51-0.95); Magnesium 1.9 mg/dL (1.9-2.7); eGFR CKD-EPI 60.2 (>60)
[2024-03-22 09:29] LABS: ABS Eosinophils 0.1 10^3/uL (0.0-0.5); ABS Lymphocytes 0.6 10^3/uL (1.0-4.8); ABS Monocytes 0.5 10^3/uL (0.0-0.9); ABS Neutrophils 5.6 10^3/uL (1.5-7.6); ABS Nucleated RBC 0.01 10^3/ul; Eosinophil % 0.9 %; Hematocrit 35.2 % (35-45); Hemoglobin 11.4 g/dL (11.5-14.3); Lymphocyte % 9.5 %; Mean Corpuscular Hemoglobin 28.1 pg (27-33); Mean Corpuscular Hgb Conc 32.3 g/dL (31-36); Mean Corpuscular Volume 87.2 fL (80-97); Mean Platelet Volume 9.8 fL (7.5-11.2); Nucleated Red Blood Cells % 0.1 %/100WBC (0.0-0.8); Platelet Count 134 10^3/uL (150-450); Red Blood Count 4.03 10^6/uL (3.63-4.92); Red Cell Distribution Width 17.6 % (12-17); White Blood Count 6.8 10^3/uL (3.8-11.8)
[2024-03-22 09:50] LABS: Calcium 9.6 mg/dL (8.6-10.3); Magnesium 1.7 mg/dL (1.9-2.7); Potassium 3.8 mmol/L (3.5-5.0); eGFR CKD-EPI 59.5 (>60)
[2024-03-22] MEDS: Magnesium Sulfate 2 gm BAG 2 GM/50 ML BAG IVPB ONE (11:19)
[2024-03-22] MEDS: Potassium EFFERVES 25 meq TAB PO ONE (15:21)
[2024-03-23 06:11] LABS: Hematocrit 32.9 % (35-45); Hemoglobin 10.7 g/dL (11.5-14.3); Mean Corpuscular Hemoglobin 28.3 pg (27-33); Mean Corpuscular Hgb Conc 32.4 g/dL (31-36); Mean Corpuscular Volume 87.5 fL (80-97); Mean Platelet Volume 10.2 fL (7.5-11.2); Platelet Count 134 10^3/uL (150-450); Red Blood Count 3.76 10^6/uL (3.63-4.92); Red Cell Distribution Width 17.7 % (12-17); White Blood Count 7.7 10^3/uL (3.8-11.8)
[2024-03-23 06:50] LABS: Calcium 9.1 mg/dL (8.6-10.3); Creatinine, Serum 0.96 mg/dL (0.51-0.95); Magnesium 1.9 mg/dL (1.9-2.7); Potassium 3.8 mmol/L (3.5-5.0); eGFR CKD-EPI 62.5 (>60)
[2024-03-23] MEDS: Magnesium Sulfate 2 gm BAG 2 GM/50 ML BAG IVPB ONE (08:57)
[2024-03-24 06:27] VITALS: BP 127/79
== END 2024-03-24 10:30 | DRG 299 ==
LOC: ED 11:16 → EDHOLD 11:16 → OBSVTOIN 16:13 → SUATTDRO 16:13 → MEDTELE 17:05
PROVIDERS: ADMIT Internal Medicine; ATTEND Internal Medicine